=== PATIENT | female | born 1940 | race Caucasian/White ===

== ENCOUNTER 2016-03-16 14:31 | Outpatient (CLI) | payer MEDICARE, OTHER ==
[2016-03-16 19:19] LABS: HEMOGLOBIN A1C 0.64 g/dL
[2016-03-16 19:35] LABS: ALBUMIN/GLOBULIN RATIO 1.2 (1.0-2.2); BILIRUBIN,TOTAL 0.9 mg/dL (0.2-1.0); CALCIUM 9.3 mg/dL (8.5-10.3); CREATININE 0.9 mg/dL (0.4-1.0); POTASSIUM 4.1 mmol/L (3.5-5.0); TOTAL PROTEIN 6.9 g/dL (6.7-8.2)
[2016-03-16 19:37] LABS: BASOPHILS % (AUTO) 0.7 %; EOSINOPHILS # (AUTO) 0.1 10^3/uL (0.0-0.7); EOSINOPHILS % (AUTO) 1.9 %; HCT - HEMATOCRIT 39.3 % (37.0-47.0); HGB - HEMOGLOBIN 12.9 g/dL (12.0-16.0); LYMPHOCYTES % (AUTO) 33.1 %; MEAN CORPUSCULAR HEMOGLOBIN 27.9 pg (27.0-31.0); MEAN CORPUSCULAR HGB CONC 32.8 g/dL (32.0-36.0); MEAN CORPUSCULAR VOLUME 85.2 fL (81.0-99.0); MEAN PLATELET VOLUME 10.1 fL (7.9-10.8); MONOCYTES # (AUTO) 0.6 10^3/uL (0.0-1.0); MONOCYTES % (AUTO) 9.4 %; NEUTROPHILS # (AUTO) 3.4 10^3/uL (1.5-6.6); NEUTROPHILS % (AUTO) 54.9 %; NUCLEATED RED BLOOD CELLS AUTO 0.2 /100WBC; RED BLOOD COUNT 4.61 10^6/uL (4.20-5.40); RED CELL DISTRIBUTION WIDTH 19.5 % (12.0-15.0); UNCORRECTED WHITE BLOOD COUNT 6.2 x10^3/uL; WHITE BLOOD COUNT 6.2 x10^3/uL (4.8-10.8)
[2016-03-16 21:27] LABS: PLATELET ESTIMATE, MANUAL NORMAL (130-450,000) (NORMAL); PLATELET MORPHOLOGY RARE GIANT PLATELETS (NORMAL)
== END 2016-03-16 14:32 | disposition home or self-care (01) ==
LOC: LAB.WCP 14:31
PROVIDERS: ATTEND Family Medicine
DX: D50.9 Iron deficiency anemia, unspecified (principal); E11.9 Type 2 diabetes mellitus without complications; K52.9 Noninfective gastroenteritis and colitis, unspecified; J44.9 Chronic obstructive pulmonary disease, unspecified
CPT/HCPCS: 36415; 80053; 83036; 83540; 84466; 85025

== ENCOUNTER 2017-10-06 08:56 | Outpatient (CLI) | payer MEDICARE, OTHER | END 2017-10-06 08:57 | disposition short-term general hospital (02) | LOC: EMS 08:56 | PROVIDERS: ATTEND Surgery | DX: R10.13 Epigastric pain (principal); R05 Cough | CPT/HCPCS: A0425; A0427 ==

== ENCOUNTER 2018-02-08 08:00 | Outpatient (CLI) | payer MEDICARE, OTHER ==
[2018-02-08 18:58] LABS: BASOPHILS # (AUTO) 0.1 10^3/uL (0.0-0.1); BASOPHILS % (AUTO) 0.8 %; EOSINOPHILS # (AUTO) 0.2 10^3/uL (0.0-0.7); EOSINOPHILS % (AUTO) 3.5 %; HGB - HEMOGLOBIN 12.9 g/dL (12.0-16.0); LYMPHOCYTES # (AUTO) 1.8 10^3/uL (1.5-3.5); LYMPHOCYTES % (AUTO) 26.4 %; MEAN CORPUSCULAR HEMOGLOBIN 29.1 pg (27.0-31.0); MEAN CORPUSCULAR HGB CONC 31.8 g/dL (32.0-36.0); MEAN CORPUSCULAR VOLUME 91.3 fL (81.0-99.0); MEAN PLATELET VOLUME 9.8 fL (7.9-10.8); MONOCYTES # (AUTO) 0.5 10^3/uL (0.0-1.0); NEUTROPHILS # (AUTO) 4.3 10^3/uL (1.5-6.6); NEUTROPHILS % (AUTO) 62.3 %; PLT - PLATELET COUNT 203 10^3/uL (130-450); RED BLOOD COUNT 4.43 10^6/uL (4.20-5.40); WHITE BLOOD COUNT 6.8 x10^3/uL (4.8-10.8)
[2018-02-08 19:19] LABS: CREATININE 0.9 mg/dL (0.4-1.0)
== END 2018-02-08 23:59 | disposition home or self-care (01) ==
LOC: LAB.WCP 08:00
PROVIDERS: ATTEND Family Medicine
DX: D50.9 Iron deficiency anemia, unspecified (principal); I25.10 Atherosclerotic heart disease of native coronary artery without angina pectoris
CPT/HCPCS: 36415; 80048; 83540; 84466; 85025

== ENCOUNTER 2018-07-17 12:08 | Outpatient (CLI) | payer MEDICARE, OTHER | END 2018-07-17 12:09 | disposition short-term general hospital (02) | LOC: EMS 12:08 | PROVIDERS: ATTEND Surgery | DX: R07.9 Chest pain, unspecified (principal); R05 Cough | CPT/HCPCS: A0425; A0427 ==

== ENCOUNTER 2018-07-29 13:33 | Outpatient (CLI) | payer MEDICARE, OTHER ==
--- NOTE | 2018-07-29 16:14 | XRAY Report ---
Reason: PNEUMONIA,LEFT LOWER LOBE Procedure Date: 07/29/2018 Accession Number: [id number] / [id number] Procedure: WCP - Chest 2 View X-Ray CPT Code: 11211 FULL RESULT: EXAM: CHEST RADIOGRAPHY EXAM DATE: 07/29/2018 01:45 PM. CLINICAL HISTORY: Pneumonia, left lower lobe. COMPARISON: None. TECHNIQUE: 2 views. FINDINGS: Lungs/Pleura: Increased lung volumes. No vascular congestion. No pneumothorax. No pleural effusions. No parenchymal cavities are identified. Mediastinum: Heart size upper normal. Aorta is mild tortuous. Aortic atherosclerosis. Other: Degenerative changes of the thoracic spine and both shoulders. IMPRESSION: 1. Hyperinflation. 2. No acute disease. RADIA
== END 2018-07-29 13:34 | disposition home or self-care (01) ==
LOC: DI.WCP 13:33
PROVIDERS: ATTEND Family Medicine
DX: J18.9 Pneumonia, unspecified organism (principal)
CPT/HCPCS: 71046

== ENCOUNTER 2018-08-23 15:20 | Outpatient (CLI) | payer MEDICARE, OTHER ==
[2018-08-23 18:45] LABS: BASOPHILS # (AUTO) 0.1 10^3/uL (0.0-0.1); BASOPHILS % (AUTO) 0.9 %; EOSINOPHILS # (AUTO) 0.1 10^3/uL (0.0-0.7); EOSINOPHILS % (AUTO) 2.1 %; HGB - HEMOGLOBIN 12.9 g/dL (12.0-16.0); LYMPHOCYTES # (AUTO) 2.1 10^3/uL (1.5-3.5); LYMPHOCYTES % (AUTO) 36.9 %; MEAN CORPUSCULAR HEMOGLOBIN 30.6 pg (27.0-31.0); MEAN CORPUSCULAR HGB CONC 31.5 g/dL (32.0-36.0); MEAN CORPUSCULAR VOLUME 96.9 fL (81.0-99.0); MEAN PLATELET VOLUME 12.2 fL (7.9-10.8); MONOCYTES # (AUTO) 0.5 10^3/uL (0.0-1.0); MONOCYTES % (AUTO) 8.7 %; NEUTROPHILS # (AUTO) 2.9 10^3/uL (1.5-6.6); NEUTROPHILS % (AUTO) 51.1 %; PLT - PLATELET COUNT 184 10^3/uL (130-450); RED BLOOD COUNT 4.22 10^6/uL (4.20-5.40); RED CELL DISTRIBUTION WIDTH 13.2 % (12.0-15.0); WHITE BLOOD COUNT 5.8 x10^3/uL (4.8-10.8)
[2018-08-23 19:10] LABS: HB2 TOTAL 13.6 g/dL; HEMOGLOBIN A1C 0.69 g/dL; HEMOGLOBIN A1C % 6.8 % (4.6-6.2)
[2018-08-23 19:17] LABS: ALBUMIN 3.6 g/dL (3.2-5.5); ALBUMIN/GLOBULIN RATIO 1.1 (1.0-2.2); CREATININE 1.1 mg/dL (0.4-1.0); TOTAL PROTEIN 6.9 g/dL (6.7-8.2)
== END 2018-08-23 23:59 | disposition home or self-care (01) ==
LOC: LAB.WCP 15:20
PROVIDERS: ATTEND Family Medicine
DX: E11.9 Type 2 diabetes mellitus without complications (principal); I10 Essential (primary) hypertension
CPT/HCPCS: 36415; 80053; 83036; 85025

== ENCOUNTER 2018-09-26 14:32 | Outpatient (CLI) | payer MEDICARE, OTHER ==
--- NOTE | 2018-09-27 19:56 | XRAY Report ---
Reason: LEFT ASHOULDER PAIN Procedure Date: 09/26/2018 Accession Number: [id number] / [id number] Procedure: WCP - Shoulder 2 View LT CPT Code: FULL RESULT: EXAM: LEFT SHOULDER RADIOGRAPHY EXAM DATE: 09/26/2018 02:51 PM. CLINICAL HISTORY: Left shoulder pain. COMPARISON: None. TECHNIQUE: 2 views. FINDINGS: Bones: Normal. No fracture or bone lesion. Joints: Mild AC joint osteoarthritis. The glenohumeral joint is unremarkable. No joint subluxations. Soft tissues: Small calcification adjacent to the greater tuberosity. IMPRESSION: 1. Mild AC joint osteoarthritis. 2. Small calcification adjacent to the greater tuberosity which may represent focal calcific tendinosis of the rotator cuff. RADIA
== END 2018-09-26 23:59 | disposition home or self-care (01) ==
LOC: DI.WCP 14:32
PROVIDERS: ATTEND Family Medicine
DX: M19.012 Primary osteoarthritis, left shoulder (principal); M25.812 Other specified joint disorders, left shoulder

== ENCOUNTER 2020-03-26 08:00 | Outpatient (CLI) | payer MEDICARE, OTHER ==
[2020-03-26 18:05] LABS: BASOPHILS # (AUTO) 0.1 10^3/uL (0.0-0.1); BASOPHILS % (AUTO) 0.7 %; EOSINOPHILS # (AUTO) 0.1 10^3/uL (0.0-0.7); EOSINOPHILS % (AUTO) 2.1 %; HGB - HEMOGLOBIN 13.2 g/dL (12.0-16.0); LYMPHOCYTES # (AUTO) 2.2 10^3/uL (1.5-3.5); LYMPHOCYTES % (AUTO) 33.1 %; MEAN CORPUSCULAR HEMOGLOBIN 30.1 pg (27.0-31.0); MEAN CORPUSCULAR HGB CONC 31.3 g/dL (32.0-36.0); MEAN CORPUSCULAR VOLUME 96.1 fL (81.0-99.0); MONOCYTES # (AUTO) 0.7 10^3/uL (0.0-1.0); MONOCYTES % (AUTO) 10.4 %; NEUTROPHILS # (AUTO) 3.6 10^3/uL (1.5-6.6); NEUTROPHILS % (AUTO) 53.6 %; PLT - PLATELET COUNT 162 10^3/uL (130-450); RED BLOOD COUNT 4.39 10^6/uL (4.20-5.40); RED CELL DISTRIBUTION WIDTH 13.2 % (12.0-15.0); WHITE BLOOD COUNT 6.7 x10^3/uL (4.8-10.8)
[2020-03-26 18:32] LABS: % IRON SATURATION 11 % (20-50); ALBUMIN/GLOBULIN RATIO 1.3 (1.0-2.2); ALKALINE PHOSPHATASE 60 IU/L (42-121); ALT ALANINE AMINOTRANSFERASE 14 IU/L (10-60); AST ASPARTATE AMINOTRANSFERASE 17 IU/L (10-42); BILIRUBIN,TOTAL 1.2 mg/dL (0.2-1.0); BUN - BLOOD UREA NITROGEN 14 mg/dL (6-20); CALCIUM 9.3 mg/dL (8.5-10.3); CARBON DIOXIDE - CO2 31 mmol/L (21-32); CHLORIDE 100 mmol/L (101-111); CHOL/HDL RATIO 2.9 (<4.4); CHOLESTEROL 118 mg/dL; CREATININE 1.1 mg/dL (0.4-1.0); GLUCOSE 146 mg/dL (70-100); HDL CHOLESTEROL 41 mg/dL; IRON 46 ug/dL (28-170); LDL CHOLESTEROL,CALCULATED 46 mg/dL; LDL/HDL RATIO 1.1 (<4.4); TOTAL IRON BINDING CAPACITY 410 ug/dL (250-450); TOTAL PROTEIN 7.2 g/dL (6.7-8.2); TRANSFERRIN 293 mg/dL (192-382); VLDL CHOLESTEROL 31 mg/dL
[2020-03-26 18:38] LABS: FERRITIN 15.5 ng/mL (11.0-306.8)
== END 2020-03-26 23:59 | disposition home or self-care (01) ==
LOC: LAB.WCP 08:00
PROVIDERS: ATTEND Internal Medicine
DX: D50.9 Iron deficiency anemia, unspecified (principal); I25.10 Atherosclerotic heart disease of native coronary artery without angina pectoris; K92.2 Gastrointestinal hemorrhage, unspecified; I10 Essential (primary) hypertension; E78.5 Hyperlipidemia, unspecified; E11.9 Type 2 diabetes mellitus without complications
CPT/HCPCS: 36415; 80053; 80061; 82043; 82570; 82728; 83036; 83540; 83721; 84443; 84466; 85025

== ENCOUNTER 2020-03-29 01:20 | Outpatient (CLI) | payer MEDICARE, OTHER ==
[2020-03-29 18:54] LABS: CREATININE,URINE 84.8 mg/dL; MICROALBUM/CREATININE RATIO,UR 37.7 ug/mg (<30.0); MICROALBUMIN,URINE 3.2 mg/dL (0-300.0)
== END 2020-03-29 23:59 | disposition home or self-care (01) ==
LOC: LAB.R 01:20
PROVIDERS: ATTEND Internal Medicine
DX: E11.9 Type 2 diabetes mellitus without complications (principal)
CPT/HCPCS: 82043; 82570

== ENCOUNTER 2020-06-16 08:00 | Outpatient (CLI) | payer MEDICARE, OTHER ==
[2020-06-16 17:56] LABS: BASOPHILS # (AUTO) 0.1 10^3/uL (0.0-0.1); BASOPHILS % (AUTO) 0.7 %; EOSINOPHILS # (AUTO) 0.1 10^3/uL (0.0-0.7); EOSINOPHILS % (AUTO) 1.8 %; HCT - HEMATOCRIT 38.8 % (37.0-47.0); HGB - HEMOGLOBIN 12.8 g/dL (12.0-16.0); LYMPHOCYTES # (AUTO) 2.1 10^3/uL (1.5-3.5); LYMPHOCYTES % (AUTO) 29.4 %; MEAN CORPUSCULAR HEMOGLOBIN 30.8 pg (27.0-31.0); MEAN CORPUSCULAR VOLUME 93.3 fL (81.0-99.0); MEAN PLATELET VOLUME 12.6 fL (7.9-10.8); MONOCYTES # (AUTO) 0.6 10^3/uL (0.0-1.0); MONOCYTES % (AUTO) 8.2 %; NEUTROPHILS # (AUTO) 4.3 10^3/uL (1.5-6.6); NEUTROPHILS % (AUTO) 59.6 %; PLT - PLATELET COUNT 194 10^3/uL (130-450); RED BLOOD COUNT 4.16 10^6/uL (4.20-5.40); RED CELL DISTRIBUTION WIDTH 13.1 % (12.0-15.0); WHITE BLOOD COUNT 7.2 x10^3/uL (4.8-10.8)
[2020-06-16 18:40] LABS: ALBUMIN 4.1 g/dL (3.2-5.5); ALBUMIN/GLOBULIN RATIO 1.2 (1.0-2.2); ALKALINE PHOSPHATASE 86 IU/L (42-121); ALT ALANINE AMINOTRANSFERASE 15 IU/L (10-60); AST ASPARTATE AMINOTRANSFERASE 18 IU/L (10-42); BUN - BLOOD UREA NITROGEN 12 mg/dL (6-20); CALCIUM 9.2 mg/dL (8.5-10.3); CARBON DIOXIDE - CO2 28 mmol/L (21-32); CHLORIDE 102 mmol/L (101-111); CHOL/HDL RATIO 2.9 (<4.4); CHOLESTEROL 123 mg/dL; GFR - MDRD 54 (>89); GLUCOSE 195 mg/dL (70-100); HDL CHOLESTEROL 42 mg/dL; LDL CHOLESTEROL,CALCULATED 55 mg/dL; LDL/HDL RATIO 1.3 (<4.4); POTASSIUM 3.7 mmol/L (3.5-5.0); SODIUM 142 mmol/L (135-145); TOTAL PROTEIN 7.5 g/dL (6.7-8.2); TRIGLYCERIDES 128 mg/dL; VLDL CHOLESTEROL 26 mg/dL
[2020-06-16 20:26] LABS: ESTIMATED AVERAGE GLUCOSE 117 mg/dL (70-100); HEMOGLOBIN A1c% 5.7 % (4.27-6.07)
== END 2020-06-16 23:59 | disposition home or self-care (01) ==
LOC: LAB.WCP 08:00
PROVIDERS: ATTEND Family Medicine
DX: E11.22 Type 2 diabetes mellitus with diabetic chronic kidney disease (principal); N18.31 Chronic kidney disease, stage 3a; E78.5 Hyperlipidemia, unspecified; E11.42 Type 2 diabetes mellitus with diabetic polyneuropathy
CPT/HCPCS: 36415; 80053; 80061; 82043; 82570; 83036; 83721; 85025

== ENCOUNTER 2021-03-16 12:38 | Outpatient (CLI) | payer MEDICARE ==
[2021-03-16 18:00] LABS: BASOPHILS % (AUTO) 0.4 %; EOSINOPHILS % (AUTO) 0.4 %; HCT - HEMATOCRIT 37.2 % (37.0-47.0); HGB - HEMOGLOBIN 11.7 g/dL (12.0-16.0); LYMPHOCYTES # (AUTO) 1.5 10^3/uL (1.5-3.5); LYMPHOCYTES % (AUTO) 28.3 %; MEAN CORPUSCULAR HEMOGLOBIN 30.2 pg (27.0-31.0); MEAN CORPUSCULAR HGB CONC 31.5 g/dL (32.0-36.0); MEAN CORPUSCULAR VOLUME 95.9 fL (81.0-99.0); MEAN PLATELET VOLUME 12.8 fL (7.9-10.8); NEUTROPHILS # (AUTO) 2.9 10^3/uL (1.5-6.6); NEUTROPHILS % (AUTO) 52.7 %; PLT - PLATELET COUNT 156 10^3/uL (130-450); RED BLOOD COUNT 3.88 10^6/uL (4.20-5.40); RED CELL DISTRIBUTION WIDTH 13.4 % (12.0-15.0); WHITE BLOOD COUNT 5.4 x10^3/uL (4.8-10.8)
[2021-03-16 18:22] LABS: ALBUMIN 3.7 g/dL (3.2-5.5); ALBUMIN/GLOBULIN RATIO 1.1 (1.0-2.2); BILIRUBIN,TOTAL 0.7 mg/dL (0.2-1.0); CREATININE 0.8 mg/dL (0.4-1.0); POTASSIUM 3.8 mmol/L (3.5-5.0); TOTAL PROTEIN 7.2 g/dL (6.7-8.2)
[2021-03-16 18:45] LABS: THYROID STIMULATING HORMONE 2.63 uIU/mL (0.34-5.60)
== END 2021-03-16 12:39 | disposition home or self-care (01) ==
LOC: LAB.N 12:38
PROVIDERS: ATTEND Physician Assistant
DX: R53.83 Other fatigue (principal); R53.1 Weakness
CPT/HCPCS: 36415; 80053; 83540; 83880; 84443; 84466; 85025

== ENCOUNTER 2021-03-22 07:15 | Outpatient (CLI) | payer MEDICARE | END 2021-03-22 07:16 | disposition critical access hospital (66) | LOC: EMS 07:15 | DX: U07.1 COVID-19 (principal) | CPT/HCPCS: A0425; A0427 ==

== ENCOUNTER 2021-03-22 07:45 | Inpatient (IN) | payer MEDICARE ==
[2021-03-22] MEDS ORDERED: DEXAMETHASONE 10 MG/ML VIAL PO STA (08:07)
[2021-03-22] MEDS ORDERED: CHERRY SYRUP 10 ML UDC PO ONE (08:07)
--- NOTE | 2021-03-22 08:07 | ED Physician Documentation ---
History of Present Illness - Stated complaint Stated Complaint: C+/WEAKNESS - History obtained from History obtained from: Patient, EMS - History of Present Illness Timing: Today Pain level max: 0 Pain level now: 0 - Additonal information Additional information: Patient is a 80-year-old female who is brought in by EMS today for coughing. Patient is a relatively poor historian. Reportedly she was at [facility] from March 16 to March 21. She was discharged home yesterday. Her original admission was for stroke versus TIA. She was reportedly Covid positive there. She is unvaccinated for Covid. Has a history of emphysema. She is on 2 L of nasal cannula oxygen at home. Had increased coughing this morning and EMS was called. She was given a breathing treatment with EMS and is currently feeling better. She denies any fevers or chills. No chest pain. No nausea or vomiting. Worse with walking, better with rest. While the patient was at [facility], she reportedly refused treatment with remdesivir. Review of Systems Ten Systems: 10 systems reviewed and negative Constitutional: denies: Fever, Chills Ears: denies: Ear pain Nose: denies: Rhinorrhea / runny nose, Congestion Throat: denies: Sore throat Respiratory: reports: Dyspnea, Cough, Wheezing GI: denies: Abdominal Pain, Nausea, Vomiting, Diarrhea Skin: denies: Rash Musculoskeletal: denies: Neck pain, Back pain Neurologic: denies: Headache PD PAST MEDICAL HISTORY - Past Medical History Past Medical History: Yes Respiratory: COPD, Emphysema - Present Medications Home Medications: Ambulatory Orders Medication Instructions Recorded Confirmed Home Medications Unobtainable 03/22/21 03/22/21 [HOME MEDICATIONS UNOBTAINABLE] - Allergies Allergies/Adverse Reactions: Allergies Allergy/AdvReac Type Severity Reaction Status Date / Time No Known Drug Allergies Allergy Verified 03/22/21 08:16 - Living Situation Living Situation: reports: With family Living Arrangement: reports: At home - Social History Does the pt have substance abuse?: No - Family History Family history: reports: Non contributory PD ED PE NORMAL - Vitals Vital signs reviewed: Yes - General General: Alert and oriented X 3, No acute distress, Well developed/nourished - HEENT HEENT: PERRL, Moist mucous membranes, Pharynx benign - Neck Neck: Supple, no meningeal sign - Cardiac Cardiac: RRR - Respiratory Respiratory: No respiratory distress, Other (Mild wheezing and crackles bilaterally) - Abdomen Abdomen: Soft, Non tender, Non distended, Other (dark stool in rectal vault) - Derm Derm: Warm and dry - Extremities Extremities: No calf tenderness / cord - Neuro Neuro: Alert and oriented X 3 Results - Vitals Vitals: Vital Signs - 24 hr 03/22/21 03/22/21 03/22/21 08:07 10:15 12:00 Temperature 37.1 C 34.8 C L Heart Rate 102 H 87 83 Heart Rate [ Supine] Respiratory 28 H 20 22 Rate Blood Pressure 118/62 136/74 H 146/65 H Blood Pressure [Supine] O2 Saturation 89 L 97 96 03/22/21 03/22/21 03/22/21 12:12 13:00 15:00 Temperature Heart Rate 89 87 Heart Rate [ 93 Supine] Respiratory 24 20 Rate Blood Pressure 125/65 133/57 H Blood Pressure 146/65 H [Supine] O2 Saturation 96 97 03/22/21 03/22/21 15:05 16:15 Temperature Heart Rate 89 89 Heart Rate [ Supine] Respiratory 24 22 Rate Blood Pressure 137/73 H Blood Pressure [Supine] O2 Saturation 98 Oxygen O2 Source Nasal cannula Oxygen Flow Rate 3 - Labs Labs: Microbiology 03/22/21 17:05 Occult Blood - Final Stool Laboratory Tests 03/22/21 03/22/21 03/22/21 08:20 08:20 15:35 WBC 4.5 L RBC 2.60 L Hgb 7.8 L Hct 24.4 L MCV 93.8 MCH 30.0 MCHC 32.0 RDW 13.2 Plt Count 141 MPV 11.9 H Neut # (Auto) 3.2 Lymph # (Auto) 0.7 L [place] # (Auto) 0.6 Eos # (Auto) 0.0 Baso # (Auto) 0.0 Absolute Nucleated RBC 0.00 Nucleated RBC % 0.0 Sodium 139 Potassium 3.4 L Chloride 98 L Carbon Dioxide 31 Anion Gap 10.0 BUN 22 H Creatinine 0.7 Estimated GFR (MDRD) 81 L Glucose 121 H Calcium 8.4 L Nasal Adenovirus (PCR) NOT DETECTED Nasal B. parapertussis DNA (PCR) NOT DETECTED Nasal Coronavir 229E PCR NOT DETECTED Nasal Coronavir HKU1 PCR NOT DETECTED Nasal Coronavir NL63 PCR NOT DETECTED Nasal Coronavir OC43 PCR NOT DETECTED Nasal Enterovir/Rhinovir PCR NOT DETECTED Nasal Influenza B PCR NOT DETECTED Nasal Influenza A PCR NOT DETECTED Nasal Parainfluen 1 PCR NOT DETECTED Nasal Parainfluen 2 PCR NOT DETECTED Nasal Parainfluen 3 PCR NOT DETECTED Nasal Parainfluen 4 PCR NOT DETECTED Nasal RSV (PCR) NOT DETECTED Nasal B.pertussis DNA PCR NOT DETECTED Nasal C.pneumoniae (PCR) NOT DETECTED Jovanny Human Metapneumo PCR NOT DETECTED Nasal M.pneumoniae (PCR) NOT DETECTED Nasal SARS-CoV-2 (PCR) DETECTED A 03/22/21 16:46 WBC 4.3 L RBC 2.73 L Hgb 8.2 L Hct 25.7 L MCV 94.1 MCH 30.0 MCHC 31.9 L RDW 13.3 Plt Count 151 MPV 12.0 H Neut # (Auto) Lymph # (Auto) [place] # (Auto) Eos # (Auto) Baso # (Auto) Absolute Nucleated RBC Nucleated RBC % Sodium Potassium Chloride Carbon Dioxide Anion Gap BUN Creatinine Estimated GFR (MDRD) Glucose Calcium Nasal Adenovirus (PCR) Nasal B. parapertussis DNA (PCR) Nasal Coronavir 229E PCR Nasal Coronavir HKU1 PCR Nasal Coronavir NL63 PCR Nasal Coronavir OC43 PCR Nasal Enterovir/Rhinovir PCR Nasal Influenza B PCR Nasal Influenza A PCR Nasal Parainfluen 1 PCR Nasal Parainfluen 2 PCR Nasal Parainfluen 3 PCR Nasal Parainfluen 4 PCR Nasal RSV (PCR) Nasal B.pertussis DNA PCR Nasal C.pneumoniae (PCR) Jovanny Human Metapneumo PCR Nasal M.pneumoniae (PCR) Nasal SARS-CoV-2 (PCR) - Rads (name of study) cxr Radiology: Final report received, EMP read contemporaneously, See rad report (Mild atypical pneumonia. ) PD MEDICAL DECISION MAKING - ED course Complexity details: reviewed results, re-evaluated patient, considered differential, d/w patient, d/w strategy execution consultant ED course: Patient is well-appearing, nontoxic. Afebrile. Stable on her regular home O2. Has Covid. Patient does have anemia. Patient's hemoglobin was 11.7 on 03/16/2021. Her hemoglobin is down to 7.8 today. Her stool is positive for blood. The family states that the patient's last endoscopy and colonoscopy were about 4 years ago and reportedly normal. She has had anemia in the past that required transfusion with several units of blood. The daughter states that she asked to [facility] yesterday prior to discharge if the patient was anemic and was told no. We have been attempting to obtain records from [facility] all day today with no receipt of records. Unclear what her hemoglobin was while she was in the hospital. Discussed the case with Dr. Hines, general surgery on-call who will plan for endoscopy tomorrow. The hospitalist, Dr. Bran was also consulted and we will place the patient in observation for further care. Physical therapy evaluated the patient and they do feel that she needs a skilled nursing. This document was made in part using voice recognition software. While efforts are made to proofread this document, sound alike and grammatical errors may occur. Departure - Departure Disposition: ED Place in Observation Clinical Impression: COVID-19, Oxygen dependent, Generalized weakness COPD (chronic obstructive pulmonary disease) Qualifiers: COPD type: unspecified COPD Qualified Code(s): J44.9 - Chronic obstructive pulmonary disease, unspecified Anemia Qualifiers: Anemia type: unspecified type Qualified Code(s): D64.9 - Anemia, unspecified Condition: Stable
[2021-03-22 08:23] LABS: BASOPHILS % (AUTO) 0.2 %; HCT - HEMATOCRIT 24.4 % (37.0-47.0); HGB - HEMOGLOBIN 7.8 g/dL (12.0-16.0); LYMPHOCYTES # (AUTO) 0.7 10^3/uL (1.5-3.5); LYMPHOCYTES % (AUTO) 16.2 %; MEAN CORPUSCULAR VOLUME 93.8 fL (81.0-99.0); MEAN PLATELET VOLUME 11.9 fL (7.9-10.8); MONOCYTES # (AUTO) 0.6 10^3/uL (0.0-1.0); MONOCYTES % (AUTO) 12.4 %; NEUTROPHILS # (AUTO) 3.2 10^3/uL (1.5-6.6); PLT - PLATELET COUNT 141 10^3/uL (130-450); RED CELL DISTRIBUTION WIDTH 13.2 % (12.0-15.0); WHITE BLOOD COUNT 4.5 x10^3/uL (4.8-10.8)
--- NOTE | 2021-03-22 08:26 | XRAY Report ---
PROCEDURE: Chest 1 View X-Ray INDICATIONS: covid+, cough TECHNIQUE: One view of the chest was acquired. COMPARISON: None FINDINGS: Surgical changes and devices: None. Lungs and pleura: Mild diffuse reticulonodular pulmonary opacity. Lungs are clear. Mediastinum: Mediastinal contours appear normal. Heart size is normal. Bones and chest wall: No suspicious bony lesions. Overlying soft tissues appear unremarkable. IMPRESSION: Mild atypical pneumonia. Reviewed by: Sarah Oliveira MD on 03/22/2021 8:24 AM [facility] Approved by: Sarah Oliveira MD on 03/22/2021 8:24 AM [facility] Station ID: [id number]
[2021-03-22 08:32] LABS: CALCIUM 8.4 mg/dL (8.5-10.3); CREATININE 0.7 mg/dL (0.4-1.0); POTASSIUM 3.4 mmol/L (3.5-5.0)
[2021-03-22] MEDS ORDERED: ALBUTEROL 1 PUFF INH STA (14:49)
[2021-03-22 16:38] LABS: CORONAVIRUS 229E-RESP PCR NOT DETECTED; CORONAVIRUS HKU1-RESP PCR NOT DETECTED; CORONAVIRUS NL63-RESP PCR NOT DETECTED; CORONAVIRUS OC43-RESP PCR NOT DETECTED; HUMAN METAPNEUMOVIRUS NOT DETECTED; INFLUENZA A- RESP PCR PANEL NOT DETECTED; INFLUENZA B - RESP PCR PANEL NOT DETECTED; PARAINFLUENZA VIRUS 1 NOT DETECTED; PARAINFLUENZA VIRUS 2 NOT DETECTED; RHINOVIRUS/ENTEROVIRUS NOT DETECTED
[2021-03-22 16:39] LABS: B. PARAPERTUSSIS- RESP PCR PAN NOT DETECTED; B. PERTUSSIS- RESP PCR PANEL NOT DETECTED; C. PNEUMONIAE- RESP PCR PANEL NOT DETECTED; M. PNEUMONIAE- RESP PCR PANEL NOT DETECTED; PARAINFLUENZA VIRUS 3 NOT DETECTED; PARAINFLUENZA VIRUS 4 NOT DETECTED; RSV- RESP PCR PANEL NOT DETECTED
[2021-03-22 16:43] LABS: SARS-CoV-2 -RESP PCR PANEL DETECTED
[2021-03-22 16:49] LABS: HCT - HEMATOCRIT 25.7 % (37.0-47.0); HGB - HEMOGLOBIN 8.2 g/dL (12.0-16.0); MEAN CORPUSCULAR HGB CONC 31.9 g/dL (32.0-36.0); MEAN CORPUSCULAR VOLUME 94.1 fL (81.0-99.0); RED BLOOD COUNT 2.73 10^6/uL (4.20-5.40); RED CELL DISTRIBUTION WIDTH 13.3 % (12.0-15.0); WHITE BLOOD COUNT 4.3 x10^3/uL (4.8-10.8)
[2021-03-22] MEDS ORDERED: ONDANSETRON ODT 4 MG TABLET TL PRN (18:14)
[2021-03-22] MEDS ORDERED: ONDANSETRON 4 MG/2 ML VIAL IVP PRN (18:14)
--- NOTE | 2021-03-22 20:23 | HISTORY & PHYSICAL EXAMINATION ---
Chief Complaint - Chief Complaint Chief Complaint: weakness History of Present Illness - Admitted From Admitted From:: home - History Obtained From Records Reviewed: [facility] and [facility] History obtained from: Dr. edwards and daughter Exam Limitations: patient is confused - History of Present Illness HPI Comment/Other: She was just discharged from [facility] yesterday. Patient is a morbidly obese female who has coronary artery disease (3 stents in 2017), COPD (on 2 to 3 L of home oxygen), type II [id number] diabetes, history of NSTEMI, hypertension, bipolar disorder that presented to the emergency room at [facility] on March 16 with "sudden" weakness for 2 days. been getting increasingly weak for 48 hours. She uses a walker at home but for the 2 days prior to admission was not able to do so. Speech was slightly slurred per her son and the patient complained of left arm numbness. She was having increasing cough, increasing dyspnea on exertion over her chronic dyspnea on exertion. Cough was productive of yellow phlegm. She was ostensibly treated as a possible TIA. A CT of the head was negative. She does have cerebral volume loss and small vessel changes. Lactic acid was 1. Blood cultures x2 were done. Glucose was 183. She was positive for COVID-19. She is not vaccinated because she does not believe in the vaccine. But she did not have any manifestation of Covid pneumonia on chest x-ray. CT and MRI did not show any stroke. Echocardiogram with bubble was unremarkable. Ejection fraction was 55 to 60%. No valvular heart disease. Internal carotid stenosis was 50 to 69% with scattered plaque. Nothing significant. She requested discharge to home. In reading the Discharge Summary from that facility, physical therapy and Occupational Therapy did recommend that she go to a detention facility. They said that it would be few days before she can be placed to in [place] facility due to Covid (+) status. Daughter feels that there is not a clear communication. Several times she asked if mom was able to transfer. Physical therapy and Social Work assured her that mom was able to stand to transfer. With that in mind, daughter felt that she could go home as opposed to go to a fci. They were barely able to get her into her car. When she got home they were barely able to get her into the house. When she was home she has been in bed and has not done much else. She has a poor appetite. They managed to get one protein shake down her between yesterday and today. But she cannot get out of bed. She cannot sit this transfer. They feel that she is not able to stay at home safely. Daughter is very concerned that mom is anemic. She recalls an episode in 2018 where mom presented with these exact same symptoms [facility]. Hemoglobin then was 6.9. When she was transfused all of her symptoms "went away" and she was able to go home. She refused endoscopy at that time. She repeatedly asked [facility] if mom was anemic. She was assured that mom was not. So when we have explained to her today that mom is anemic she is very annoyed. Other problems that she had while there was COPD. Low suspicion for pneumonia even with Covid positive status. She was treated with duo nebs, oxygen, and O2 sats were maintained between 88 to 92%. 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 To be followed up in the outpatient basis. She had acute kidney injury with a BUN of 18 and a creatinine of 1.03. Baseline usually 0.75. She was felt to be dehydrated and she responded to normal saline 75 mils an hour. Her chronic problems of hypertension, bipolar disorder, coronary artery disease and diabetic neuropathy were all treated with her usual home meds. Since discharge to home she has not done well. They cannot take care of her with this weakness. Maybe she has more cough and phlegm but not a severe change. So they called EMS and EMS had her with an O2 sat of 89% on room air. 3 L nasal cannula resulted in 96%. No gross motor deficit noted. Temperature was 37.1. Heart rate 102. Blood pressure 118/62. Respirations 28. She was a morbidly obese female with no gross focal neurological deficits. She was alert, "oriented" on exam even though she is described as confused, disoriented by family. Again there is no focal motor deficits. Hemoglobin was 7.8. The emergency room provider was unclear if this was a new problem or an old problem. He waited 5 hours to get records from [facility]. Rectal was heme positive. because he could not verify if this was a new drop in hemoglobin or chronic hemoglobin, he postulated that she may be weak because of anemia. He repeated her hemoglobin and it was 8.2. He spoke to general surgery who said they would be willing to do an EGD on this stay if she was having acute GI bleed. Chest x- ray has mild diffuse reticular nodular pulmonary opacity. Potassium was 3.4. BUN 22. Creatinine 0.7. White cell count is low at 4.3. She continues to be Covid positive. The patient was placed in observation. We then obtained records from [facility]. Her hemoglobin there was 8.6 and 8.9 for the entirety of her stay. As such her hemoglobin is stable and she most likely will not need an EGD acutely. So what we have is a generalized weakness patient. No new acute findings other than mild Covid pneumonia on chronic medical conditions. She will be placed in observation overnight. Hemoglobin will be rechecked for tomorrow. History - Past Medical History Cardiovascular: reports: Hypertension, High cholesterol, Coronary artery disease Respiratory: reports: COPD, Emphysema Neuro: reports: Dementia, TIA (see CT head, MRI, carotids, ECHO in HPI), Other (diminished mobility, uses walker, obese) Endocrine/Autoimmune: reports: Type 2 diabetes GI: reports: GERD MANAGER SUBWAY: reports: Other () : reports: Incontinence HEENT: reports: Chronic vision loss Psych: reports: Bipolar disorder Musculoskeletal: reports: Osteoarthritis Derm: reports: None MRSA Hx?: No - Past Surgical History General: reports: Cholecystectomy Ortho: reports: Other (back surgery) Cardiovascular: reports: Coronary stent - Family & Social History Family History Comment/Other: Mom of old age in her 90s. Dad of bl adder cancer? age 80s. 1 brother of suicide, alcoholic. 1/2 brother of suicide, alcoholic. 1/2 brother alive. 2 half sisters alive, DM. 4 kids. oldest son of massive heart attack in 50s, drug abuse and alcoholic Living arrangement: At home Living Situation: With family Social History Notes: Patient and have lived w daughter for 5 years. Smoked. 45 pk yr hs w stopping cigs 20 years ago. No problems w alcohol. - Substance History Use: Uses substance without health or social issues: NONE Abuse: Recurrent use of substance despite neg consequences: NONE Dependence: Experiences withdrawal or developed tolerances: NONE - POLST Patient has POLST: No POLST Status: DNR (but does want intubation) Meds/Allgy - Home Medications Home Medications: Ambulatory Orders Medication Instructions Recorded Confirmed Aspirin EC [Ecotrin] 81 mg PO DAILY 03/22/21 03/22/21 Atorvastatin Calcium 40 mg PO QPM 03/22/21 03/22/21 Famotidine [Pepcid] 20 mg PO BID 03/22/21 03/22/21 Furosemide [Lasix] 20 mg PO SUTUTHSA@0900 03/22/21 03/22/21 Furosemide [Lasix] 40 mg PO MOWEFR@0900 03/22/21 03/22/21 Gabapentin [Neurontin] 300 mg PO HS 03/22/21 03/22/21 Glimepiride [Amaryl] 4 mg PO QDBREAKFAST 03/22/21 03/22/21 Metoprolol Succinate [Toprol Xl] 12.5 mg PO BID 03/22/21 03/22/21 Nitroglycerin [Nitrostat] 0.4 mg SL Q5MIN PRN 03/22/21 03/22/21 Risperidone [Risperdal] 1 mg PO QPM 03/22/21 03/22/21 - Allergies Allergies/Adverse Reactions: Allergies Allergy/AdvReac Type Severity Reaction Status Date / Time No Known Drug Allergies Allergy Verified 03/22/21 08:16 Review of Systems - Constitutional Constitutional: reports: Fatigue, Malaise, Weakness, Poor appetite - Eyes Eyes: reports: Vision loss (chronic). denies: Pain - Ears, Nose & Throat Ears, Nose & Throat: reports: Hearing loss, Nasal discharge, Nasal congestion. denies: Hearing aids, Tinnitus, Vertigo - Cardiovascular Cariovascular: reports: Exertional dyspnea, Decr. exercise tolerance. denies: Irregular heart rate, Palpitations, Chest pain, Edema, Lightheadedness - Respiratory Respiratory: reports: Cough, Sputum production, SOB with exertion. denies: Wheezing, Snoring, SOB at rest - Gastrointestinal Gastrointestinal: denies: Abdominal pain, Abdominal distention, Constipation, Bl ack stools, Bloody stools, Bile emesis, Jian blood emesis - Genitourinary Genitourinary: reports: Incontinence. denies: Dysuria, Frequency, Urgency, Hematuria - Musculoskeletal Musculoskeletal: reports: Stiffness, Joint pain. denies: Muscle pain, Back pain - Integumentary Integumentary: denies: Rash, Pruritis, Lesions, Dryness - Neurological Neurological: reports: General weakness, Memory problems, Pre-existing deficit. denies: Focal weakness, Headache, Dizziness, Abnormal gait - Psychiatric Psychiatric: reports: Depression, Anxiety, Other (confusion, word finding difficulty). denies: Suicidal - Endocrine Endocrine: denies: Polyuria, Polydypsia, Polyphagia, Intolerance to cold - Hematologic/Lymphatic Hematologic/Lymphatic: reports: Anemia. denies: Bruising, Petechiae, Blood clots Prior Level of Functionality: She is a relatively sedentary person who is able to go from a laying to sitting position. Sitting to standing position and uses a walker. Exam - Vital Signs Reviewed Vital Signs: Yes Vital Signs: Vital Signs x48h Temp Pulse Pulse Resp BP BP Pulse Ox 03/22/21 19:59 36.7 C 91 24 132/46 H 100 03/22/21 19:10 84 20 03/22/21 18:32 84 18 136/80 H 97 03/22/21 16:15 89 22 137/73 H 98 03/22/21 15:05 89 24 03/22/21 15:00 87 20 133/57 H 97 03/22/21 13:00 89 24 125/65 96 - Physical Exam General Appearance: positive: Alert, Other (Morbidly obese, sleepy, difficult to keep awake to answer questions) Eyes Bilateral: positive: PERRL, EOMI ENT: positive: Dry mucous membranes (Mouth breathing when she falls asleep, I think that is why she is dry. No teeth.) Neck: positive: No JVD. negative: Stiff neck Respiratory: positive: No respiratory distress, Wheezes (diffused but no use of acessory muscles and falls asleep without issue), Other (laying almost flat). negative: Rales, Rhonchi Cardiovascular: positive: Regular rate & rhythm, No murmur. negative: Gallop/S4, Friction rub Peripheral Pulses: positive: 1+ Abdomen: positive: Non-tender, No organomegaly, Nml bowel sounds, No distention Skin: positive: Warm, Dry, Pallor Extremities: positive: Full ROM, No pedal edema Neurologic/Psychiatric: positive: CN's nml (2-12), Disoriented to place, Disoriented to time. negative: Motor nml (moderate generalized weakness) Conclusion/Plan - Problem List (1) Generalized weakness Conclusion/Plan: And putting together her story, physical exam, and objective findings, I believe that her generalized weakness is sudden as the daughter describes. Most likely this patient is succumbed to a mild case of Covid. However in a patient who has this many comorbid conditions of obesity, sedentary status, COPD, this would leave her weak enough not to be able to take care of herself. She is not having a stroke. While she is infected, the infectivity appears to be mild by hypoxia and chest x-ray. She has all the lab findings of leukopenia and mild atypical pneumonia. She is not having a heart attack. While electrolyte abnormalities are present they are not severe. And she appears to have a chronic anemia not in acute anemia which was the daughter's concern. Plan: Observation status Treatment for all the above problems listed PT and OT consult and treatment. She had HH ordered but they were not going to be able to get to the house until after 03/26 per the daughter. Plan for discharge to detention facility in [place]. Daughter states a bed is already been identified and is available we just need to write transfer orders when the patient's quarantine status is concluded. (2) COVID-19 Conclusion/Plan: With mild infection. Mild atypical pneumonia. She refused remdesivir at [facility]. Her RN asked her daughter and family is requesting no remdesivir. (3) Chronic respiratory failure with hypoxia Conclusion/Plan: Due to COPD. Patient is on 2 to 3 L at home. Currently on stable oxygen requirement status here. (4) COPD without exacerbation Conclusion/Plan: While she is on oxygen at home, this patient is not on nebulizers. Current exam has a cough, phlegm production and wheezing but no use of acessory muscles. Will add 3 times daily DuoNeb and decadron and see if that helps. (5) Type 2 diabetes mellitus treated without insulin Conclusion/Plan: At home she is on Amaryl.A1c 2 years ago was 7.4%. At [facility] it was 6%. While there she was on low-dose regular insulin with correctional scale. While she is here we will do the same. (6) Iron deficiency anemia Conclusion/Plan: Mom is on chronic iron. She has been on daily iron therapy ever since she had her previous transfusion in 2018. Because mom had refused endoscopy there is no way to know the etiology of her anemia. With this day, daughter is asking if we could please do an endoscopy. I explained to her that now that she has been identified as having chronic anemia versus acute anemia, it will be up to the surgeon to decide if she will be done while she is here or planned in the outpatient setting. Qualifiers: Iron deficiency anemia type: unspecified iron deficiency Qualified Code(s): D50.9 - Iron deficiency anemia, unspecified (7) Bipolar 1 disorder Conclusion/Plan: resume respirdal. (8) Hypokalemia Conclusion/Plan: K rider and recheck in am. - Lab Results Lab results reviewed: Yes Fish Bones: 03/22/21 16:46 03/22/21 08:20 - Diagnostic Imaging Results Diagnostic Imaging Results: positive: Final report reviewed - EKG Results EKG Interpreted Independently: No Core Measures - Anticipated LOS I expect patient to be DC'd or transferred within 96 hours.: Yes - DVT/VTE - Prophylaxis VTE/DVT Device ordered at admit?: Yes
[2021-03-22 22:12] LABS: HCT - HEMATOCRIT 23.9 % (37.0-47.0); HGB - HEMOGLOBIN 7.6 g/dL (12.0-16.0)
[2021-03-22 22:33] LABS: INR 1.1 (0.8-1.2)
[2021-03-22] MEDS: SODIUM CHLORIDE FLUSH 0.9% 10 ML SYRINGE IVP PRN (22:36)
[2021-03-22] MEDS: POTASSIUM CHLOR 10 MEQ/100 ML 10 MEQ/100 ML BAG IV SCH (22:36)
[2021-03-23] MEDS: POTASSIUM CHLOR 10 MEQ/100 ML 10 MEQ/100 ML BAG IV SCH ×3 (00:14→03:05)
[2021-03-23] MEDS: SODIUM CHLORIDE FLUSH 0.9% 10 ML SYRINGE IVP SCH ×3 (01:48→17:19)
[2021-03-23 05:58] LABS: HCT - HEMATOCRIT 23.3 % (37.0-47.0); HGB - HEMOGLOBIN 7.5 g/dL (12.0-16.0); LYMPHOCYTES # (AUTO) 0.6 10^3/uL (1.5-3.5); LYMPHOCYTES % (AUTO) 13.8 %; MEAN CORPUSCULAR HGB CONC 32.2 g/dL (32.0-36.0); MEAN CORPUSCULAR VOLUME 93.2 fL (81.0-99.0); MEAN PLATELET VOLUME 12.2 fL (7.9-10.8); MONOCYTES # (AUTO) 0.6 10^3/uL (0.0-1.0); MONOCYTES % (AUTO) 13.4 %; NEUTROPHILS # (AUTO) 3.3 10^3/uL (1.5-6.6); NEUTROPHILS % (AUTO) 72.4 %; PLT - PLATELET COUNT 162 10^3/uL (130-450); RED CELL DISTRIBUTION WIDTH 13.2 % (12.0-15.0); WHITE BLOOD COUNT 4.5 x10^3/uL (4.8-10.8)
[2021-03-23 06:04] LABS: CALCIUM 8.5 mg/dL (8.5-10.3); CREATININE 0.6 mg/dL (0.4-1.0); POTASSIUM 4.2 mmol/L (3.5-5.0)
[2021-03-23] MEDS: INSULIN ASPART 300 UNIT/3 ML PEN SUBQ SCH ×4 (07:59→22:06)
[2021-03-23] MEDS: METOPROLOL SUCCINATE 25 MG TABLET PO SCH ×2 (08:00→22:07)
--- NOTE | 2021-03-23 08:34 | PROVIDER PROGRESS NOTE ---
Subjective - Prog Note Date Prog Note Date: 03/23/21 - Subjective Subjective: She feels better overall. Denies any shortness of breath. Still has an occasional productive cough. Has not noticed any bleeding. Current Medications - Current Medications Current Medications: Active Medications Acetaminophen (Acetaminophen 325 Mg Tablet) 650 mg PO Q4HR PRN PRN Reason: Pain 1 to 4 Albuterol (Albuterol 1 Puff) 2 puffs INH Q4H PRN PRN Reason: Wheezing Atorvastatin Calcium (Atorvastatin 40 Mg Tablet) 40 mg PO QPM [facility] Cholecalciferol (Cholecalciferol 25 Mcg Tablet) 50 mcg PO DAILY [facility] Last Admin: 03/23/21 12:52 Dose: 50 mcg Dexamethasone (Dexamethasone 4 Mg/Ml Vial) 6 mg IVP DAILY [facility] Stop: 03/31/21 09:01 Last Admin: 03/23/21 08:00 Dose: 6 mg Gabapentin (Gabapentin 300 Mg Capsule) 300 mg PO HS [facility] Insulin Aspart (Insulin Aspart 300 Unit/3 Ml Pen) 1 - 9 unit SUBQ 08 00,1200,1700,2100 [facility]; Protocol Last Admin: 03/23/21 12:03 Dose: Not Given Metoprolol Succinate (Metoprolol Succinate 25 Mg Tablet) 12.5 mg PO BID [facility] Last Admin: 03/23/21 08:00 Dose: 12.5 mg Ondansetron HCl (Ondansetron Odt 4 Mg Tablet) 4 mg TL Q6HR PRN PRN Reason: Nausea / Vomiting Ondansetron HCl (Ondansetron 4 Mg/2 Ml Vial) 4 mg IVP Q6HR PRN PRN Reason: Nausea / Vomiting Pantoprazole Sodium (Pantoprazole 40 Mg Tablet) 40 mg PO QDAC [facility] Last Admin: 03/23/21 09:49 Dose: 40 mg Risperidone (Risperidone 1 Mg Tablet) 1 mg PO QPM [facility] Sodium Chloride (Sodium Chloride Flush 0.9% 10 Ml Syringe) 10 ml IVP PRN PRN PRN Reason: NEEDED PER PROVIDER ORDERS Last Admin: 03/22/21 22:36 Dose: 10 ml Sodium Chloride (Sodium Chloride Flush 0.9% 10 Ml Syringe) 10 ml IVP 0100,0900, 1700 [facility] Last Admin: 03/23/21 08:00 Dose: 10 ml Aspirin EC [Ecotrin] 81 mg PO DAILY 03/22/21 Atorvastatin Calcium 40 mg PO QPM 03/22/21 Famotidine [Pepcid] 20 mg PO BID 03/22/21 Furosemide [Lasix] 20 mg PO SUTUTHSA@0900 03/22/21 Furosemide [Lasix] 40 mg PO MOWEFR@0900 03/22/21 Gabapentin [Neurontin] 300 mg PO HS 03/22/21 Glimepiride [Amaryl] 4 mg PO QDBREAKFAST 03/22/21 Metoprolol Succinate [Toprol Xl] 12.5 mg PO BID 03/22/21 Nitroglycerin [Nitrostat] 0.4 mg SL Q5MIN PRN 03/22/21 Risperidone [Risperdal] 1 mg PO QPM 03/22/21 Objective - Vital Signs/Intake & Output Reviewed Vital Signs: Yes Vital Signs: Vital Signs x48h Temp Pulse Resp BP Pulse Ox 03/23/21 07:54 36.8 C 94 19 127/83 H 96 03/23/21 05:45 127/51 L 03/23/21 05:00 36.2 C L 98 18 112/33 L 94 Intake & Output: Intake & Output 03/20/21 03/21/21 03/22/21 03/23/21 23:59 23:59 23:59 23:59 Intake Total 960 300 Output Total 100 1200 Balance 860 -900 - Objective General Appearance: positive: No acute distress, Alert Eyes Bilateral: positive: Normal inspection, Conjunctivae nml ENT: positive: ENT inspection nml, Other (Nasal cannula in place.) Neck: positive: Nml inspection Respiratory: positive: No respiratory distress, Rhonchi. negative: Wheezes, Rales Cardiovascular: positive: Regular rate & rhythm, No murmur. negative: Tachycardia, Systolic murmur Abdomen: positive: Non-tender, No distention. negative: Tenderness Skin: positive: Warm, Dry Extremities: positive: No pedal edema Neurologic/Psychiatric: positive: Other (No focal deficits.). negative: Disoriented to person, Disoriented to place - Lab Results Fish Bones: 03/23/21 14:01 03/23/21 05:30 Other Labs: Lab Results x24hrs 03/23/21 03/23/21 03/22/21 Range/Units 05:30 05:30 22:05 WBC 4.5 L (4.8-10.8) x10^3/uL RBC 2.50 L (4.20-5.40) 10^6/uL Hgb 7.5 L 7.6 L (12.0-16.0) g/dL Hct 23.3 L 23.9 L (37.0-47.0) % MCV 93.2 (81.0-99.0) fL MCH 30.0 (27.0-31.0) pg MCHC 32.2 (32.0-36.0) g/dL RDW 13.2 (12.0-15.0) % Plt Count 162 (130-450) 10^3/uL MPV 12.2 H (7.9-10.8) fL Neut # (Auto) 3.3 (1.5-6.6) 10^3/uL Lymph # (Auto) 0.6 L (1.5-3.5) 10^3/uL [place] # (Auto) 0.6 (0.0-1.0) 10^3/uL Eos # (Auto) 0.0 (0.0-0.7) 10^3/uL Baso # (Auto) 0.0 (0.0-0.1) 10^3/uL Absolute Nucleated RBC 0.00 x10^3/uL Nucleated RBC % 0.0 /100WBC PT (9.9-12.6) secs INR (0.8-1.2) Sodium 142 (135-145) mmol/L Potassium 4.2 (3.5-5.0) mmol/L Chloride 102 (101-111) mmol/L Carbon Dioxide 32 (21-32) mmol/L Anion Gap 8.0 (6-13) BUN 19 (6-20) mg/dL Creatinine 0.6 (0.4-1.0) mg/dL Estimated GFR (MDRD) 96 (>89) Glucose 132 H (70-100) mg/dL Calcium 8.5 (8.5-10.3) mg/dL Nasal Adenovirus (PCR) Nasal B. parapertussis DNA (PCR) Nasal Coronavir 229E PCR Nasal Coronavir HKU1 PCR Nasal Coronavir NL63 PCR Nasal Coronavir OC43 PCR Nasal Enterovir/Rhinovir PCR Nasal Influenza B PCR Nasal Influenza A PCR Nasal Parainfluen 1 PCR Nasal Parainfluen 2 PCR Nasal Parainfluen 3 PCR Nasal Parainfluen 4 PCR Nasal RSV (PCR) Nasal B.pertussis DNA PCR Nasal C.pneumoniae (PCR) Jovanny Human Metapneumo PCR Nasal M.pneumoniae (PCR) Nasal SARS-CoV-2 (PCR) Blood Type Blood Type Recheck Antibody Screen 03/22/21 03/22/21 03/22/21 Range/Units 22:05 22:05 16:46 WBC 4.3 L (4.8-10.8) x10^3/uL RBC 2.73 L (4.20-5.40) 10^6/uL Hgb 8.2 L (12.0-16.0) g/dL Hct 25.7 L (37.0-47.0) % MCV 94.1 (81.0-99.0) fL MCH 30.0 (27.0-31.0) pg MCHC 31.9 L (32.0-36.0) g/dL RDW 13.3 (12.0-15.0) % Plt Count 151 (130-450) 10^3/uL MPV 12.0 H (7.9-10.8) fL Neut # (Auto) (1.5-6.6) 10^3/uL Lymph # (Auto) (1.5-3.5) 10^3/uL [place] # (Auto) (0.0-1.0) 10^3/uL Eos # (Auto) (0.0-0.7) 10^3/uL Baso # (Auto) (0.0-0.1) 10^3/uL Absolute Nucleated RBC x10^3/uL Nucleated RBC % /100WBC PT 12.0 (9.9-12.6) secs INR 1.1 (0.8-1.2) Sodium (135-145) mmol/L Potassium (3.5-5.0) mmol/L Chloride (101-111) mmol/L Carbon Dioxide (21-32) mmol/L Anion Gap (6-13) BUN (6-20) mg/dL Creatinine (0.4-1.0) mg/dL Estimated GFR (MDRD) (>89) Glucose (70-100) mg/dL Calcium (8.5-10.3) mg/dL Nasal Adenovirus (PCR) Nasal B. parapertussis DNA (PCR) Nasal Coronavir 229E PCR Nasal Coronavir HKU1 PCR Nasal Coronavir NL63 PCR Nasal Coronavir OC43 PCR Nasal Enterovir/Rhinovir PCR Nasal Influenza B PCR Nasal Influenza A PCR Nasal Parainfluen 1 PCR Nasal Parainfluen 2 PCR Nasal Parainfluen 3 PCR Nasal Parainfluen 4 PCR Nasal RSV (PCR) Nasal B.pertussis DNA PCR Nasal C.pneumoniae (PCR) Jovanny Human Metapneumo PCR Nasal M.pneumoniae (PCR) Nasal SARS-CoV-2 (PCR) Blood Type O POSITIVE Blood Type Recheck Antibody Screen NEGATIVE 03/22/21 03/22/21 Range/Units 15:35 08:20 WBC (4.8-10.8) x10^3/uL RBC (4.20-5.40) 10^6/uL Hgb (12.0-16.0) g/dL Hct (37.0-47.0) % MCV (81.0-99.0) fL MCH (27.0-31.0) pg MCHC (32.0-36.0) g/dL RDW (12.0-15.0) % Plt Count (130-450) 10^3/uL MPV (7.9-10.8) fL Neut # (Auto) (1.5-6.6) 10^3/uL Lymph # (Auto) (1.5-3.5) 10^3/uL [place] # (Auto) (0.0-1.0) 10^3/uL Eos # (Auto) (0.0-0.7) 10^3/uL Baso # (Auto) (0.0-0.1) 10^3/uL Absolute Nucleated RBC x10^3/uL Nucleated RBC % /100WBC PT (9.9-12.6) secs INR (0.8-1.2) Sodium (135-145) mmol/L Potassium (3.5-5.0) mmol/L Chloride (101-111) mmol/L Carbon Dioxide (21-32) mmol/L Anion Gap (6-13) BUN (6-20) mg/dL Creatinine (0.4-1.0) mg/dL Estimated GFR (MDRD) (>89) Glucose (70-100) mg/dL Calcium (8.5-10.3) mg/dL Nasal Adenovirus (PCR) NOT DETECTED Nasal B. parapertussis DNA (PCR) NOT DETECTED Nasal Coronavir 229E PCR NOT DETECTED Nasal Coronavir HKU1 PCR NOT DETECTED Nasal Coronavir NL63 PCR NOT DETECTED Nasal Coronavir OC43 PCR NOT DETECTED Nasal Enterovir/Rhinovir PCR NOT DETECTED Nasal Influenza B PCR NOT DETECTED Nasal Influenza A PCR NOT DETECTED Nasal Parainfluen 1 PCR NOT DETECTED Nasal Parainfluen 2 PCR NOT DETECTED Nasal Parainfluen 3 PCR NOT DETECTED Nasal Parainfluen 4 PCR NOT DETECTED Nasal RSV (PCR) NOT DETECTED Nasal B.pertussis DNA PCR NOT DETECTED Nasal C.pneumoniae (PCR) NOT DETECTED Jovanny Human Metapneumo PCR NOT DETECTED Nasal M.pneumoniae (PCR) NOT DETECTED Nasal SARS-CoV-2 (PCR) DETECTED A Blood Type Blood Type Recheck O POSITIVE Antibody Screen Assessment/Plan - Problem List (1) Iron deficiency anemia Impression: She is acute on chronic anemia. She is a history of iron deficiency anemia but this acute drop may be related to a GI bleed. Her stool is heme positive. Hemoglobin dropped initially while at [facility] but has since been stable at around 8-9. Her hemoglobin has been relatively stable overnight although slightly decreased this morning. No evidence of obvious bleeding. Will place on a clear liquid diet today and plan for EGD tomorrow with general surgery. She will start on a PPI. Continue iron supplementation. Monitor hemoglobin every 8 hours. Qualifiers: Iron deficiency anemia type: unspecified iron deficiency Qualified Code(s): D50.9 - Iron deficiency anemia, unspecified (2) Heme positive stool Impression: Her stool is heme positive and she has had a drop in her hemoglobin but this has been relatively stable. She has had EGDs in the past and reportedly had a duodenal polyp that was removed at [facility]. I spoke with general surgery today and our plan is to watch her today and see if her hemoglobin remains stable. If she is a further drop then we will pursue an endoscopy tomorrow. Continue PPI. (3) COVID-19 Impression: She has known COVID-19. X-ray revealed mild atypical pneumonia. She is not had an increase in her baseline oxygen requirements. We will continue to monitor. No indication for steroids. Continue contact precautions. (4) COPD (chronic obstructive pulmonary disease) Impression: Does not appear to be in exacerbation. She is on 2 L of oxygen at baseline. It is unclear why she is not on any inhalers at home. We will look to prescribe it to your tiotropium on discharge. Continue with albuterol as needed. Qualifiers: COPD type: unspecified COPD Qualified Code(s): J44.9 - Chronic obstructive pulmonary disease, unspecified (5) Chronic respiratory failure with hypoxia Impression: This is secondary to the COPD. She is on her baseline 2-3 L of oxygen. Continue supplemental oxygen for goal saturation greater than 88%. (6) Generalized weakness Impression: This is likely multifactorial related to the anemia as well as the COVID-19 infection. We have consulted PT and is known from her previous hospitalization that a SNF is recommended. We will look to get her to a SNF once medically stable. (7) Type 2 diabetes mellitus treated without insulin Impression: Her blood glucose is well controlled. We will place on sliding scale and hold her home glimepiride. (8) History of coronary artery disease Impression: Stable. We are continuing her home metoprolol and Lipitor per holding the aspirin until we rule out a GI bleed. (9) Bipolar 1 disorder Impression: Stable. Continue risperidone.
--- NOTE | 2021-03-23 08:52 | PHARMACY PROGRESS NOTE ---
- Best Possible Medication History Admit Date and Time: 03/22/211813 Processed by: Pharmacy Medication History completed: Yes Patient Interview: Completed Secondary Source(s): Physician records, Pharmacy records, Insurance records As the person ultimately responsible for medication therapy, providers are able to order a medication from an existing home medication list in [facility] via the "Reconcile Routine" prior to Confirmation of that medication by faculty support coordinator. Such practice is discouraged except when the physician, in their clinical judgment, deems that a medical need exists for a medication without regard to previous use.
[2021-03-23] MEDS ORDERED: DEXAMETHASONE 4 MG/ML VIAL IVP SCH (09:00)
--- NOTE | 2021-03-23 09:33 | CONSULTATION NOTE ---
Referring Provider Consult Date: 03/23/21 Chief Complaint - Chief Complaint Chief Complaint: weakness History of Present Illness - Admitted From Admitted From:: ED - History Obtained From Records Reviewed: yes History obtained from: chart review Exam Limitations: covid isolation - History of Present Illness HPI Comment/Other: She was discharged from [facility] the day prior to admission here. She was admitted to [facility] with weakness and was diagnosed with covid pneumonia, and TIA. She was started on plavix and aspirin. H and H 03/20/2021 8.6 and 26.5. She has history of CAD, O2 dependent COPD, CKD, DM. By report she has history of GI bleed 4 years ago requiring transfusion. Upper and lower endoscopy by report normal. She is a patient of farzaneh walden. 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 She had polypectomy in 2018 and ERCP and corona rveillance in 2019. She has history of pancreatic stent and stone debris. She has history of reactive granulation tissue at biliary and pancreatic sphincterotomy site. History - Past Medical History Cardiovascular: reports: Hypertension, High cholesterol, Coronary artery disease Respiratory: reports: COPD, Emphysema Neuro: reports: Dementia, TIA (see CT head, MRI, carotids, ECHO in HPI), Other (diminished mobility, uses walker, obese) Endocrine/Autoimmune: reports: Type 2 diabetes GI: reports: GERD ADMISSIONS EVALUATOR: reports: Other () : reports: Incontinence HEENT: reports: Chronic vision loss Psych: reports: Bipolar disorder Musculoskeletal: reports: Osteoarthritis Derm: reports: None MRSA Hx?: No Other Past Medical History: knee and back pain - Past Surgical History General: reports: Cholecystectomy Ortho: reports: Other (back surgery) Cardiovascular: reports: Coronary stent - Family & Social History Family History Comment/Other: Mom of old age in her 90s. Dad of bladder cancer? age 80s. 1 brother of suicide, alcoholic. 1/2 brother of suicide, alcoholic. 1/2 brother alive. 2 half sisters alive, DM. 4 kids. oldest son of massive heart attack in 50s, drug abuse and alcoholic Living arrangement: At home Living Situation: With family Social History Notes: Patient and have lived w daughter for 5 years. Smoked. 45 pk yr hs w stopping cigs 20 years ago. No problems w alcohol. - Substance History Use: Uses substance without health or social issues: NONE Abuse: Recurrent use of substance despite neg consequences: NONE Dependence: Experiences withdrawal or developed tolerances: NONE - POLST Patient has POLST: No POLST Status: DNR (but does want intubation) Meds/Allgy - Home Medications Home Medications: Ambulatory Orders Medication Instructions Recorded Confirmed Aspirin EC [Ecotrin] 81 mg PO DAILY 03/22/21 03/22/21 Atorvastatin Calcium 40 mg PO QPM 03/22/21 03/22/21 Famotidine [Pepcid] 20 mg PO BID 03/22/21 03/22/21 Furosemide [Lasix] 20 mg PO SUTUTHSA@0900 03/22/21 03/22/21 Furosemide [Lasix] 40 mg PO MOWEFR@0900 03/22/21 03/22/21 Gabapentin [Neurontin] 300 mg PO HS 03/22/21 03/22/21 Glimepiride [Amaryl] 4 mg PO QDBREAKFAST 03/22/21 03/22/21 Metoprolol Succinate [Toprol Xl] 12.5 mg PO BID 03/22/21 03/22/21 Nitroglycerin [Nitrostat] 0.4 mg SL Q5MIN PRN 03/22/21 03/22/21 Risperidone [Risperdal] 1 mg PO QPM 03/22/21 03/22/21 - Allergies Allergies/Adverse Reactions: Allergies Allergy/AdvReac Type Severity Reaction Status Date / Time No Known Drug Allergies Allergy Verified 03/22/21 08:16 Review of Systems - Other Findings Other Findings: 10 pt ros as above otherwise unremarkable Exam - Vital Signs Vital Signs: Vital Signs x48h Temp Pulse Resp BP Pulse Ox 03/23/21 07:54 36.8 C 94 19 127/83 H 96 03/23/21 05:45 127/51 L 03/23/21 05:00 36.2 C L 98 18 112/33 L 94 - Physical Exam General Appearance: positive: No acute distress, Alert ENT: positive: No signs of dehydration Respiratory: positive: No respiratory distress Abdomen: positive: No distention Conclusion/Plan - Problem List (1) Anemia Conclusion/Plan: She recently had a well documented TIA and was started on aspirin and plavix. She has history CAD, O2 dependent copd, dm, and currently has covid pneumonia. ASA class 4. 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 She is a patient of GI. She was anemic at [facility] and H and H has decreased slightly since. No bm since admit. An EGD here at [facility] is unlikely to be therapeutic. She is not actively bleeding at this time. Recommend clears, PPI, If H and H continues to drift can offer upper endoscopy tomorrow. If she has recurrent bleeding/ granulation tissue at her ampulla I would recommend transfer to [facility] for further care. Qualifiers: Anemia type: unspecified type Qualified Code(s): D64.9 - Anemia, unspecified - Lab Results Lab results reviewed: Yes Fish Bones: 03/23/21 05:30 03/23/21 05:30
[2021-03-23] MEDS: PANTOPRAZOLE 40 MG TABLET PO SCH (09:49)
[2021-03-23] MEDS ORDERED: ALBUTEROL 1 PUFF INH PRN ×2 (11:06→11:29)
[2021-03-23] MEDS: CHOLECALCIFEROL 25 MCG TABLET PO SCH (12:52)
[2021-03-23 14:07] LABS: HCT - HEMATOCRIT 24.1 % (37.0-47.0); HGB - HEMOGLOBIN 7.9 g/dL (12.0-16.0)
[2021-03-23 21:56] LABS: HCT - HEMATOCRIT 24.5 % (37.0-47.0); HGB - HEMOGLOBIN 7.7 g/dL (12.0-16.0)
[2021-03-23] MEDS: ATORVASTATIN 40 MG TABLET PO SCH (22:06)
[2021-03-23] MEDS: GABAPENTIN 300 MG CAPSULE PO SCH (22:06)
[2021-03-23] MEDS: risperiDONE 1 MG TABLET PO SCH (22:07)
[2021-03-24] MEDS: SODIUM CHLORIDE FLUSH 0.9% 10 ML SYRINGE IVP SCH ×3 (01:28→17:07)
[2021-03-24 06:17] LABS: BASOPHILS % (AUTO) 0.2 %; HCT - HEMATOCRIT 24.4 % (37.0-47.0); HGB - HEMOGLOBIN 7.6 g/dL (12.0-16.0); LYMPHOCYTES # (AUTO) 0.7 10^3/uL (1.5-3.5); LYMPHOCYTES % (AUTO) 14.1 %; MEAN CORPUSCULAR HEMOGLOBIN 29.8 pg (27.0-31.0); MEAN CORPUSCULAR HGB CONC 31.1 g/dL (32.0-36.0); MEAN CORPUSCULAR VOLUME 95.7 fL (81.0-99.0); MEAN PLATELET VOLUME 11.8 fL (7.9-10.8); MONOCYTES # (AUTO) 0.7 10^3/uL (0.0-1.0); MONOCYTES % (AUTO) 14.1 %; NEUTROPHILS # (AUTO) 3.6 10^3/uL (1.5-6.6); NEUTROPHILS % (AUTO) 71.4 %; PLT - PLATELET COUNT 190 10^3/uL (130-450); RED BLOOD COUNT 2.55 10^6/uL (4.20-5.40); RED CELL DISTRIBUTION WIDTH 13.3 % (12.0-15.0); WHITE BLOOD COUNT 5.1 x10^3/uL (4.8-10.8)
[2021-03-24 06:27] LABS: CALCIUM 8.5 mg/dL (8.5-10.3); CREATININE 0.7 mg/dL (0.4-1.0); POTASSIUM 4.1 mmol/L (3.5-5.0)
[2021-03-24] MEDS: PANTOPRAZOLE 40 MG TABLET PO SCH (06:31)
[2021-03-24 08:18] LABS: DIFFERENTIAL COMMENT MANUAL=AUTO DIFF; PLATELET ESTIMATE, MANUAL NORMAL (130-450,000) (NORMAL); PLATELET MORPHOLOGY NORMAL APPEARANCE (NORMAL)
[2021-03-24] MEDS: INSULIN ASPART 300 UNIT/3 ML PEN SUBQ SCH ×4 (08:20→21:38)
[2021-03-24] MEDS: CHOLECALCIFEROL 25 MCG TABLET PO SCH (08:57)
[2021-03-24] MEDS: METOPROLOL SUCCINATE 25 MG TABLET PO SCH ×2 (08:57→21:38)
[2021-03-24] MEDS ORDERED: SENNA 8.6 MG TABLET PO PRN (09:47)
[2021-03-24] MEDS ORDERED: DOCUSATE SODIUM 250 MG CAPSULE PO PRN (09:47)
[2021-03-24] MEDS: polyethylene glycoL 3350 17 GM PACKET PO SCH (10:50)
[2021-03-24] MEDS: guaiFENesin 600 MG TABLET PO SCH ×2 (10:50→21:38)
[2021-03-24] MEDS: FUROSEMIDE 20 MG TABLET PO SCH (10:50)
--- NOTE | 2021-03-24 14:57 | PROVIDER PROGRESS NOTE ---
Subjective - Prog Note Date Prog Note Date: 03/24/21 - Subjective Subjective: pt in isolation appears comfortable although mild tachypnea Objective - Vital Signs/Intake & Output Vital Signs: Vital Signs x48h Temp Pulse Pulse Resp BP Pulse Ox 03/24/21 12:59 37.9 C 98 24 131/55 H 98 03/24/21 09:51 91 18 03/24/21 07:51 36.7 C 85 24 125/58 L 97 Intake & Output: Intake & Output 03/21/21 03/22/21 03/23/21 03/24/21 23:59 23:59 23:59 23:59 Intake Total 960 1000 350 Output Total 100 2000 1700 Balance 860 1000 -1350 - Objective General Appearance: positive: No acute distress, Alert Respiratory: positive: No respiratory distress Abdomen: positive: No distention - Lab Results Fish Bones: 03/24/21 06:10 03/24/21 06:10 Other Labs: Lab Results x24hrs 03/24/21 03/24/21 03/23/21 Range/Units 06:10 06:10 21:53 WBC 5.1 (4.8-10.8) x10^3/uL RBC 2.55 L (4.20-5.40) 10^6/uL Hgb 7.6 L 7.7 L (12.0-16.0) g/dL Hct 24.4 L 24.5 L (37.0-47.0) % MCV 95.7 (81.0-99.0) fL MCH 29.8 (27.0-31.0) pg MCHC 31.1 L (32.0-36.0) g/dL RDW 13.3 (12.0-15.0) % Plt Count 190 (130-450) 10^3/uL MPV 11.8 H (7.9-10.8) fL Neut # (Auto) 3.6 (1.5-6.6) 10^3/uL Lymph # (Auto) 0.7 L (1.5-3.5) 10^3/uL [place] # (Auto) 0.7 (0.0-1.0) 10^3/uL Eos # (Auto) 0.0 (0.0-0.7) 10^3/uL Baso # (Auto) 0.0 (0.0-0.1) 10^3/uL Absolute Nucleated RBC 0.00 x10^3/uL Band Neuts % (Manual) Not Reportable Abnorm Lymph % (Manual) Not Reportable Nucleated RBC % 0.0 /100WBC Neutrophils # (Manual) Not Reportable Lymphocytes # (Manual) Not Reportable Monocytes # (Manual) Not Reportable Eosinophils # (Manual) Not Reportable Basophils # (Manual) Not Reportable Differential Comment MANUAL=AUTO DIFF Platelet Estimate NORMAL (130-450,000) (NORMAL) Platelet Morphology NORMAL APPEARANCE (NORMAL) RBC Morph Micro Appear 1+ POLYCHROMASIA (NORMAL) Sodium 142 (135-145) mmol/L Potassium 4.1 (3.5-5.0) mmol/L Chloride 100 L (101-111) mmol/L Carbon Dioxide 34 H (21-32) mmol/L Anion Gap 8.0 (6-13) BUN 20 (6-20) mg/dL Creatinine 0.7 (0.4-1.0) mg/dL Estimated GFR (MDRD) 81 L (>89) Glucose 122 H (70-100) mg/dL Calcium 8.5 (8.5-10.3) mg/dL 25-OH Vitamin D Total (30-100) ng/mL 03/23/21 Range/Units 14:01 WBC (4.8-10.8) x10^3/uL RBC (4.20-5.40) 10^6/uL Hgb (12.0-16.0) g/dL Hct (37.0-47.0) % MCV (81.0-99.0) fL MCH (27.0-31.0) pg MCHC (32.0-36.0) g/dL RDW (12.0-15.0) % Plt Count (130-450) 10^3/uL MPV (7.9-10.8) fL Neut # (Auto) (1.5-6.6) 10^3/uL Lymph # (Auto) (1.5-3.5) 10^3/uL [place] # (Auto) (0.0-1.0) 10^3/uL Eos # (Auto) (0.0-0.7) 10^3/uL Baso # (Auto) (0.0-0.1) 10^3/uL Absolute Nucleated RBC x10^3/uL Band Neuts % (Manual) Abnorm Lymph % (Manual) Nucleated RBC % /100WBC Neutrophils # (Manual) Lymphocytes # (Manual) Monocytes # (Manual) Eosinophils # (Manual) Basophils # (Manual) Differential Comment Platelet Estimate (NORMAL) Platelet Morphology (NORMAL) RBC Morph Micro Appear (NORMAL) Sodium (135-145) mmol/L Potassium (3.5-5.0) mmol/L Chloride (101-111) mmol/L Carbon Dioxide (21-32) mmol/L Anion Gap (6-13) BUN (6-20) mg/dL Creatinine (0.4-1.0) mg/dL Estimated GFR (MDRD) (>89) Glucose (70-100) mg/dL Calcium (8.5-10.3) mg/dL 25-OH Vitamin D Total 77 (30-100) ng/mL Assessment/Plan - Problem List (1) Anemia Impression: she has stable anemia. no evidence active bleeding she has covid pneumonia and recent well documented and significant TIA Discussed with anesthesia. We both believe risk of EGD at this time would offer more risk than benefit Recommend she follow up with her farzaneh francois plastic mould maker when she has recovered from covid Qualifiers: Anemia type: unspecified type Qualified Code(s): D64.9 - Anemia, unspecified
--- NOTE | 2021-03-24 16:25 | PROVIDER PROGRESS NOTE ---
Subjective - Prog Note Date Prog Note Date: 03/24/21 - Subjective Subjective: She reports feeling tired today. Denies any dyspnea. Still has a wet cough. She denies any pain. Current Medications - Current Medications Current Medications: Active Medications Acetaminophen (Acetaminophen 325 Mg Tablet) 650 mg PO Q4HR PRN PRN Reason: Pain 1 to 4 Albuterol (Albuterol 1 Puff) 2 puffs INH Q4H PRN PRN Reason: Wheezing Last Admin: 03/24/21 09:50 Dose: 2 puffs Atorvastatin Calcium (Atorvastatin 40 Mg Tablet) 40 mg PO QPM [facility] Last Admin: 03/23/21 22:06 Dose: 40 mg Cholecalciferol (Cholecalciferol 25 Mcg Tablet) 50 mcg PO DAILY [facility] Last Admin: 03/24/21 08:57 Dose: 50 mcg Docusate Sodium (Docusate Sodium 250 Mg Capsule) 250 - 500 mg PO DAILY PRN PRN Reason: Constipation Furosemide (Furosemide 20 Mg Tablet) 20 mg PO SUTUTHSA@0900 [facility] Last Admin: 03/24/21 10:50 Dose: 20 mg Furosemide (Furosemide 20 Mg Tablet) 40 mg PO MOWEFR@0900 [facility] Gabapentin (Gabapentin 300 Mg Capsule) 300 mg PO HS [facility] Last Admin: 03/23/21 22:06 Dose: 300 mg Guaifenesin (Guaifenesin 600 Mg Tablet) 600 mg PO BID [facility] Last Admin: 03/24/21 10:50 Dose: 600 mg Insulin Aspart (Insulin Aspart 300 Unit/3 Ml Pen) 1 - 9 unit SUBQ 0800,1200,1700,2100 [facility]; Protocol Last Admin: 03/24/21 10:50 Dose: Not Given Metoprolol Succinate (Metoprolol Succinate 25 Mg Tablet) 12.5 mg PO BID [facility] Last Admin: 03/24/21 08:57 Dose: 12.5 mg Ondansetron HCl (Ondansetron Odt 4 Mg Tablet) 4 mg TL Q6HR PRN PRN Reason: Nausea / Vomiting Ondansetron HCl (Ondansetron 4 Mg/2 Ml Vial) 4 mg IVP Q6HR PRN PRN Reason: Nausea / Vomiting Pantoprazole Sodium (Pantoprazole 40 Mg Tablet) 40 mg PO QDAC [facility] Last Admin: 03/24/21 06:31 Dose: 40 mg Polyethylene Glycol (Polyethylene Glycol 3350 17 Gm Packet) 17 gm PO DAILY [facility] Last Admin: 03/24/21 10:50 Dose: Not Given Risperidone (Risperidone 1 Mg Tablet) 1 mg PO QPM [facility] Last Admin: 03/23/21 22:07 Dose: 1 mg Senna (Senna 8.6 Mg Tablet) 8.6 - 17.2 mg PO DAILY PRN PRN Reason: Constipation Sodium Chloride (Sodium Chloride Flush 0.9% 10 Ml Syringe) 10 ml IVP PRN PRN PRN Reason: NEEDED PER PROVIDER ORDERS Last Admin: 03/22/21 22:36 Dose: 10 ml Sodium Chloride (Sodium Chloride Flush 0.9% 10 Ml Syringe) 10 ml IVP 0100,0900,1700 [facility] Last Admin: 03/24/21 08:57 Dose: 10 ml Aspirin EC [Ecotrin] 81 mg PO DAILY 03/22/21 Atorvastatin Calcium 40 mg PO QPM 03/22/21 Famotidine [Pepcid] 20 mg PO BID 03/22/21 Furosemide [Lasix] 20 mg PO SUTUTHSA@0900 03/22/21 Furosemide [Lasix] 40 mg PO MOWEFR@0900 03/22/21 Gabapentin [Neurontin] 300 mg PO HS 03/22/21 Glimepiride [Amaryl] 4 mg PO QDBREAKFAST 03/22/21 Metoprolol Succinate [Toprol Xl] 12.5 mg PO BID 03/22/21 Nitroglycerin [Nitrostat] 0.4 mg SL Q5MIN PRN 03/22/21 Risperidone [Risperdal] 1 mg PO QPM 03/22/21 Objective - Vital Signs/Intake & Output Reviewed Vital Signs: Yes Vital Signs: Vital Signs x48h Temp Pulse Pulse Resp BP Pulse Ox 03/24/21 12:59 37.9 C 98 24 131/55 H 98 03/24/21 09:51 91 18 Intake & Output: Intake & Output 03/21/21 03/22/21 03/23/21 03/24/21 23:59 23:59 23:59 23:59 Intake Total 960 1000 350 Output Total 100 2000 1700 Balance 860 -1000 -1350 - Objective General Appearance: positive: No acute distress, Alert, Other (Appears fati gued.) Eyes Bilateral: positive: Normal inspection, Conjunctivae nml ENT: positive: ENT inspection nml, Other (Nasal cannula in place.) Neck: positive: Nml inspection Respiratory: positive: No respiratory distress. negative: Wheezes, Rales Cardiovascular: positive: Regular rate & rhythm. negative: Tachycardia Abdomen: positive: Non-tender, No distention. negative: Tenderness Skin: positive: Warm, Dry Extremities: positive: No pedal edema Neurologic/Psychiatric: positive: Other (Moving all four extremities.). negative: Disoriented to person, Disoriented to place - Lab Results Fish Bones: 03/24/21 06:10 03/24/21 06:10 Other Labs: Lab Results x24hrs 03/24/21 03/24/21 03/23/21 Range/Units 06:10 06:10 21:53 WBC 5.1 (4.8-10.8) x10^3/uL RBC 2.55 L (4.20-5.40) 10^6/uL Hgb 7.6 L 7.7 L (12.0-16.0) g/dL Hct 24.4 L 24.5 L (37.0-47.0) % MCV 95.7 (81.0-99.0) fL MCH 29.8 (27.0-31.0) pg MCHC 31.1 L (32.0-36.0) g/dL RDW 13.3 (12.0-15.0) % Plt Count 190 (130-450) 10^3/uL MPV 11.8 H (7.9-10.8) fL Neut # (Auto) 3.6 (1.5-6.6) 10^3/uL Lymph # (Auto) 0.7 L (1.5-3.5) 10^3/uL [place] # (Auto) 0.7 (0.0-1.0) 10^3/uL Eos # (Auto) 0.0 (0.0-0.7) 10^3/uL Baso # (Auto) 0.0 (0.0-0.1) 10^3/uL Absolute Nucleated RBC 0.00 x10^3/uL Band Neuts % (Manual) Not Reportable Abnorm Lymph % (Manual) Not Reportable Nucleated RBC % 0.0 /100WBC Neutrophils # (Manual) Not Reportable Lymphocytes # (Manual) Not Reportable Monocytes # (Manual) Not Reportable Eosinophils # (Manual) Not Reportable Basophils # (Manual) Not Reportable Differential Comment MANUAL=AUTO DIFF Platelet Estimate NORMAL (130-450,000) (NORMAL) Platelet Morphology NORMAL APPEARANCE (NORMAL) RBC Morph Micro Appear 1+ POLYCHROMASIA (NORMAL) Sodium 142 (135-145) mmol/L Potassium 4.1 (3.5-5.0) mmol/L Chloride 100 L (101-111) mmol/L Carbon Dioxide 34 H (21-32) mmol/L Anion Gap 8.0 (6-13) BUN 20 (6-20) mg/dL Creatinine 0.7 (0.4-1.0) mg/dL Estimated GFR (MDRD) 81 L (>89) Glucose 122 H (70-100) mg/dL Calcium 8.5 (8.5-10.3) mg/dL 25-OH Vitamin D Total (30-100) ng/mL 03/23/21 Range/Units 14:01 WBC (4.8-10.8) x10^3/uL RBC (4.20-5.40) 10^6/uL Hgb (12.0-16.0) g/dL Hct (37.0-47.0) % MCV (81.0-99.0) fL MCH (27.0-31.0) pg MCHC (32.0-36.0) g/dL RDW (12.0-15.0) % Plt Count (130-450) 10^3/uL MPV (7.9-10.8) fL Neut # (Auto) (1.5-6.6) 10^3/uL Lymph # (Auto) (1.5-3.5) 10^3/uL [place] # (Auto) (0.0-1.0) 10^3/uL Eos # (Auto) (0.0-0.7) 10^3/uL Baso # (Auto) (0.0-0.1) 10^3/uL Absolute Nucleated RBC x10^3/uL Band Neuts % (Manual) Abnorm Lymph % (Manual) Nucleated RBC % /100WBC Neutrophils # (Manual) Lymphocytes # (Manual) Monocytes # (Manual) Eosinophils # (Manual) Basophils # (Manual) Differential Comment Platelet Estimate (NORMAL) Platelet Morphology (NORMAL) RBC Morph Micro Appear (NORMAL) Sodium (135-145) mmol/L Potassium (3.5-5.0) mmol/L Chloride (101-111) mmol/L Carbon Dioxide (21-32) mmol/L Anion Gap (6-13) BUN (6-20) mg/dL Creatinine (0.4-1.0) mg/dL Estimated GFR (MDRD) (>89) Glucose (70-100) mg/dL Calcium (8.5-10.3) mg/dL 25-OH Vitamin D Total 77 (30-100) ng/mL Assessment/Plan - Problem List (1) Iron deficiency anemia Impression: She has acute on chronic anemia but her hemoglobin has been stable since admission and reviewing her labs from [facility], they have also remained stable since then. At this point we will hold off on EGD given lack of significant bleeding and the fact that she is Covid positive with multiple comorbidities. We have continued her iron supplementation. Qualifiers: Iron deficiency anemia type: unspecified iron deficiency Qualified Code(s): D50.9 - Iron deficiency anemia, unspecified (2) Heme positive stool Impression: Her stool is heme positive but her hemoglobin has been stable since admission. I spoke with general surgery today and they prefer to hold off on an EGD given she is Covid positive with COPD on 2 L of oxygen at baseline. They feel that the benefits do not outweigh the risks at this point especially given the stable hemoglobin. We will continue PPI and the patient can follow-up on an outpatient basis with her hardware test engineer at [facility] to pursue an endoscopy if necessary. I discussed this with the patient's daughter who is in agreement with the plan. (3) COVID-19 Impression: She has known COVID-19. X-ray revealed mild atypical pneumonia. She has not had an increase in her baseline oxygen requirements. We will continue to monitor. No indication for steroids. Continue contact precautions. (4) COPD (chronic obstructive pulmonary disease) Impression: Does not appear to be in exacerbation. She is on 2 L of oxygen at baseline. It is unclear why she is not on any inhalers at home. We will look to prescribe it to your tiotropium on discharge. Continue with albuterol as needed. Qualifiers: COPD type: unspecified COPD Qualified Code(s): J44.9 - Chronic obstructive pulmonary disease, unspecified (5) Chronic respiratory failure with hypoxia Impression: This is secondary to the COPD. She is on her baseline 2 L of oxygen. Continue supplemental oxygen for goal saturation greater than 88%. (6) Generalized weakness Impression: This is likely multifactorial but suspect exacerbated by the COVID-19 infection. PT is recommending a SNF and we are looking to get her to SNF once she is accepted. Continue daily PT/OT and appreciate social work input. (7) Type 2 diabetes mellitus treated without insulin Impression: Her blood glucose is well controlled. We will place on sliding scale and hold her home glimepiride. (8) History of coronary artery disease Impression: Stable. We are continuing her home metoprolol and Lipitor. We will resume her home aspirin. (9) Bipolar 1 disorder Impression: Stable. Continue risperidone.
[2021-03-24] MEDS: GABAPENTIN 300 MG CAPSULE PO SCH (21:38)
[2021-03-24] MEDS: risperiDONE 1 MG TABLET PO SCH (21:38)
[2021-03-24] MEDS: ATORVASTATIN 40 MG TABLET PO SCH (21:38)
[2021-03-25] MEDS ORDERED: FUROSEMIDE 20 MG/2 ML VIAL IVP STA (00:03)
[2021-03-25] MEDS: SODIUM CHLORIDE FLUSH 0.9% 10 ML SYRINGE IVP SCH ×3 (00:20→17:50)
[2021-03-25] MEDS: PANTOPRAZOLE 40 MG TABLET PO SCH (06:01)
[2021-03-25 07:19] LABS: HCT - HEMATOCRIT 24.3 % (37.0-47.0); HGB - HEMOGLOBIN 7.5 g/dL (12.0-16.0); LYMPHOCYTES # (AUTO) 0.9 10^3/uL (1.5-3.5); LYMPHOCYTES % (AUTO) 18.5 %; MEAN CORPUSCULAR HEMOGLOBIN 29.6 pg (27.0-31.0); MEAN CORPUSCULAR HGB CONC 30.9 g/dL (32.0-36.0); MEAN PLATELET VOLUME 11.7 fL (7.9-10.8); MONOCYTES # (AUTO) 0.7 10^3/uL (0.0-1.0); MONOCYTES % (AUTO) 15.1 %; NEUTROPHILS # (AUTO) 3.1 10^3/uL (1.5-6.6); NEUTROPHILS % (AUTO) 65.8 %; NRBC ABSOLUTE COUNT (AUTO) 0.02 x10^3/uL; NUCLEATED RED BLOOD CELLS AUTO 0.4 /100WBC; PLT - PLATELET COUNT 208 10^3/uL (130-450); RED BLOOD COUNT 2.53 10^6/uL (4.20-5.40); RED CELL DISTRIBUTION WIDTH 13.2 % (12.0-15.0); WHITE BLOOD COUNT 4.8 x10^3/uL (4.8-10.8)
[2021-03-25 07:25] LABS: CREATININE 0.9 mg/dL (0.4-1.0); POTASSIUM 3.7 mmol/L (3.5-5.0)
[2021-03-25] MEDS: INSULIN ASPART 300 UNIT/3 ML PEN SUBQ SCH ×4 (08:26→22:34)
[2021-03-25] MEDS ORDERED: ALBUTEROL NEB 2.5 MG/3 ML INH PRN (10:10)
[2021-03-25] MEDS: FUROSEMIDE 20 MG TABLET PO SCH (10:12)
[2021-03-25] MEDS: ASPIRIN CHEW 81 MG TABLET PO SCH ×2 (10:12→13:30)
[2021-03-25] MEDS: CHOLECALCIFEROL 25 MCG TABLET PO SCH (10:12)
[2021-03-25] MEDS: FERROUS SULFATE 325 MG TABLET PO SCH (10:12)
[2021-03-25] MEDS: guaiFENesin 600 MG TABLET PO SCH ×2 (10:13→22:33)
[2021-03-25] MEDS: METOPROLOL SUCCINATE 25 MG TABLET PO SCH ×3 (10:13→22:28)
[2021-03-25] MEDS: polyethylene glycoL 3350 17 GM PACKET PO SCH (10:13)
--- NOTE | 2021-03-25 10:21 | PROVIDER PROGRESS NOTE ---
Subjective - Prog Note Date Prog Note Date: 03/25/21 - Subjective Subjective: She is lethargic this morning and barely able to speak. Current Medications - Current Medications Current Medications: Active Medications Acetaminophen (Acetaminophen 325 Mg Tablet) 650 mg PO Q4HR PRN PRN Reason: Pain 1 to 4 Albuterol (Albuterol 1 Puff) 2 puffs INH Q4H PRN PRN Reason: Wheezing Last Admin: 03/24/21 09:50 Dose: 2 puffs Albuterol (Albuterol Neb 2.5 Mg/3 Ml) 2.5 mg INH RTQ4H PRN PRN Reason: Wheezing Albuterol/Ipratropium (Ipratropium/Albuterol 3 Ml Neb) 3 ml INH Q4HR COUNT [facility]CLUD[facility] Last Admin: 03/25/21 11:12 Dose: 3 ml Aspirin (Aspirin Chew 81 Mg Tablet) 81 mg PO DAILY COUNT [facility] Last Admin: 03/25/21 10:12 Dose: Not Given Atorvastatin Calcium (Atorvastatin 40 Mg Tablet) 40 mg PO QPM COUNT [facility] Last Admin: 03/24/21 21:38 Dose: 40 mg Cholecalciferol (Cholecalciferol 25 Mcg Tablet) 50 mcg PO DAILY [facility] Last Admin: 03/25/21 10:12 Dose: Not Given Docusate Sodium (Docusate Sodium 250 Mg Capsule) 250 - 500 mg PO DAILY PRN PRN Reason: Constipation Ferrous Sulfate (Ferrous Sulfate 325 Mg Tablet) 325 mg PO DAILYWM COUNT [facility] Last Admin: 03/25/21 10:12 Dose: Not Given Furosemide (Furosemide 20 Mg Tablet) 20 mg PO SUTUTHSA@0900 [facility] Last Admin: 03/24/21 10:50 Dose: 20 mg Furosemide (Furosemide 20 Mg Tablet) 40 mg PO MOWEFR@0900 [facility] Last Admin: 03/25/21 10:12 Dose: Not Given Guaifenesin (Guaifenesin 600 Mg Tablet) 600 mg PO BID [facility] Last Admin: 03/25/21 10:13 Dose: Not Given Ceftriaxone Sodium 1 gm/ (Sodium Chloride) 100 mls @ 200 mls/hr IV DAILY [facility] Last Infusion: 03/25/21 11:07 Dose: Infused Insulin Aspart (Insulin Aspart 300 Unit/3 Ml Pen) 1 - 9 unit SUBQ 0 800,1200,1700,2100 [facility]; Protocol Last Admin: 03/25/21 11:22 Dose: Not Given Methylprednisolone (Methylprednisolone Succinate 40 Mg/Ml Vial) 60 mg IVP BID [facility] Last Admin: 03/25/21 10:34 Dose: 60 mg Metoprolol Succinate (Metoprolol Succinate 25 Mg Tablet) 12.5 mg PO BID [facility] Last Admin: 03/25/21 10:13 Dose: Not Given Ondansetron HCl (Ondansetron Odt 4 Mg Tablet) 4 mg TL Q6HR PRN PRN Reason: Nausea / Vomiting Ondansetron HCl (Ondansetron 4 Mg/2 Ml Vial) 4 mg IVP Q6HR PRN PRN Reason: Nausea / Vomiting Pantoprazole Sodium (Pantoprazole 40 Mg Tablet) 40 mg PO QDAC COUNT [facility] Last Admin: 03/25/21 06:01 Dose: 40 mg Polyethylene Glycol (Polyethylene Glycol 3350 17 Gm Packet) 17 gm PO DAILY [facility] Last Admin: 03/25/21 10:13 Dose: Not Given Risperidone (Risperidone 1 Mg Tablet) 1 mg PO QPM [facility] Last Admin: 03/24/21 21:38 Dose: 1 mg Senna (Senna 8.6 Mg Tablet) 8.6 - 17.2 mg PO DAILY PRN PRN Reason: Constipation Sodium Chloride (Sodium Chloride Flush 0.9% 10 Ml Syringe) 10 ml IVP PRN PRN PRN Reason: NEEDED PER PROVIDER ORDERS Last Admin: 03/22/21 22:36 Dose: 10 ml Sodium Chloride (Sodium Chloride Flush 0.9% 10 Ml Syringe) 10 ml IVP 0100,0900,1700 [facility] Last Admin: 03/25/21 08:27 Dose: 10 ml Aspirin EC [Ecotrin] 81 mg PO DAILY 03/22/21 Atorvastatin Calcium 40 mg PO QPM 03/22/21 Famotidine [Pepcid] 20 mg PO BID 03/22/21 Furosemide [Lasix] 20 mg PO SUTUTHSA@0900 03/22/21 Furosemide [Lasix] 40 mg PO MOWEFR@0903/22/21 Gabapentin [Neurontin] 300 mg PO HS 03/22/21 Glimepiride [Amaryl] 4 mg PO QDBREAKFAST 03/22/21 Metoprolol Succinate [Toprol Xl] 12.5 mg PO BID 03/22/21 Nitroglycerin [Nitrostat] 0.4 mg SL Q5MIN PRN 03/22/21 Risperidone [Risperdal] 1 mg PO QPM 03/22/21 Objective - Vital Signs/Intake & Output Reviewed Vital Signs: Yes Vital Signs: Vital Signs x48h Temp Pulse Pulse Pulse Resp BP Pulse Ox 03/25/21 10:12 93 16 146/81 H 93 03/25/21 08:50 87 20 03/25/21 07:51 37.4 C 92 24 138/45 H 99 03/25/21 06:22 37.1 C 99 23 105/75 95 03/25/21 05:00 92 19 141/53 H 99 03/25/21 04:15 85 130/47 L 97 03/25/21 03:00 128/46 L 99 Intake & Output: Intake & Output 03/22/21 03/23/21 03/24/21 03/25/21 23:59 23:59 23:59 23:59 Intake Total 960 1000 650 100 Output Total 100 2000 2050 550 Balance 860 -1000 -1400 -450 - Objective General Appearance: positive: Lethargic, Other (She will open her eyes to verbal stimuli but can barely speak. Appears quite lethargic.) Eyes Bilateral: positive: PERRL, Conjunctivae nml ENT: positive: ENT inspection nml, Other (Nasal cannula in place.) Respiratory: positive: No respiratory distress, Wheezes, Rhonchi, Other (Tachypnic). negative: Breath sounds nml Cardiovascular: positive: Regular rate & rhythm. negative: Tachycardia Abdomen: positive: Non-tender, No distention. negative: Tenderness Skin: positive: Warm, Dry Extremities: positive: No pedal edema Neurologic/Psychiatric: positive: Other (No deficits. Still moving all four extremities.) - Lab Results Fish Bones: 03/25/21 07:10 03/25/21 07:10 Other Labs: Lab Results x24hrs 03/25/21 03/25/21 Range/Units 07:10 07:10 WBC 4.8 (4.8-10.8) x10^3/uL RBC 2.53 L (4.20-5.40) 10^6/uL Hgb 7.5 L (12.0-16.0) g/dL Hct 24.3 L (37.0-47.0) % MCV 96.0 (81.0-99.0) fL MCH 29.6 (27.0-31.0) pg MCHC 30.9 L (32.0-36.0) g/dL RDW 13.2 (12.0-15.0) % Plt Count 208 (130-450) 10^3/uL MPV 11.7 H (7.9-10.8) fL Neut # (Auto) 3.1 (1.5-6.6) 10^3/uL Lymph # (Auto) 0.9 L (1.5-3.5) 10^3/uL [place] # (Auto) 0.7 (0.0-1.0) 10^3/uL Eos # (Auto) 0.0 (0.0-0.7) 10^3/uL Baso # (Auto) 0.0 (0.0-0.1) 10^3/uL Absolute Nucleated RBC 0.02 x10^3/uL Nucleated RBC % 0.4 /100WBC Sodium 142 (135-145) mmol/L Potassium 3.7 (3.5-5.0) mmol/L Chloride 96 L (101-111) mmol/L Carbon Dioxide 38 H (21-32) mmol/L Anion Gap 8.0 (6-13) BUN 18 (6-20) mg/dL Creatinine 0.9 (0.4-1.0) mg/dL Estimated GFR (MDRD) 60 L (>89) Glucose 178 H (70-100) mg/dL Calcium 8.0 L (8.5-10.3) mg/dL Assessment/Plan - Problem List (1) Altered mental status Impression: She is definitely quite lethargic this morning but does wake up and open her eyes to verbal stimuli. She can move her hands as not but have any focal deficits. I am concerned given elevated bicarb and this morning that she may be hypercapnic. She is wheezing and has rhonchi this morning so I am concerned that she is having a COPD exacerbation which may have caused the hypercapnia. I ordered an ABG but evidently this did not show significant hypercapnia that would explain her mentation. Check a TSH and ammonia which are within normal limits. We did not do a CT of the head because she had no obvious deficits suggest a stroke. I discontinued her home gabapentin and upon reevaluation later in the afternoon, she is improved and able to eat lunch. I do have a sharon r cause of why she was so lethargic this morning but we will continue to monitor at this time. Qualifiers: Altered mental status type: somnolence Qualified Code(s): R40.0 - Somnolence (2) COPD (chronic obstructive pulmonary disease) Impression: She is now most definitely in a COPD exacerbation likely triggered by the Covid infection. She is not more hypoxic compared to her baseline but she is wheezing with rhonchi. We will start her on Solu-Medrol IV twice daily switch to p.o. prednisone once she can take p.o. consistently. Duo nebs every 4 hours albuterol as needed. I have also started her on ceftriaxone IV for COPD exacerbation. Qualifiers: COPD type: COPD with acute exacerbation Qualified Code(s): J44.1 - Chronic obstructive pulmonary disease with (acute) exacerbation (3) Iron deficiency anemia Impression: Her hemoglobin has been stable without evidence of significant bleeding. Did not do an endoscopy due to the Covid infection and the fact hemoglobin is stable. Continue iron supplementation. Qualifiers: Iron deficiency anemia type: unspecified iron deficiency Qualified Code(s): D50.9 - Iron deficiency anemia, unspecified (4) Heme positive stool Impression: Her hemoglobin has been stable and she not had evidence of significant bleeding. We did not do an endoscopy due to the Covid infection and her comorbidities. This can be considered on outpatient basis at [facility] where she had her previous endoscopies. Continue PPI. (5) COVID-19 Impression: This likely triggered the COPD exacerbation. She is not hypoxic compared to her baseline. She is on prednisone for the COPD exacerbation. Continue contact precautions. (6) Chronic respiratory failure with hypoxia Impression: This is stable. She is on her baseline 2 to 3 L of oxygen. (7) Generalized weakness Impression: She continues work with PT on a daily basis. She will need a SNF on discharge and she has been tentatively accepted at a SNF in [place] for this Sunday. (8) Type 2 diabetes mellitus treated without insulin Impression: Her blood glucose is controlled without the use of glimepiride. Now that she is on prednisone, we will monitor closely as she may need Lantus. (9) History of coronary artery disease Impression: Stable. We are continuing her home metoprolol and Lipitor. We will resume her home aspirin. (10) Bipolar 1 disorder Impression: Continue risperidone.
[2021-03-25] MEDS: cefTRIAXone 1 GM in SODIUM CHLORIDE 0.9% MINIBAG 100 ML IV SCH (10:33)
[2021-03-25] MEDS: methylPREDNISolone SUCCINATE 40 MG/ML VIAL IVP SCH ×2 (10:34→22:28)
[2021-03-25 10:38] LABS: ABG BASE EXCESS 9.5 mmol/L (-2.0-3.0); ABG HCO3 34.8 mmol/L (22.0-26.0); ABG OXYGEN SATURATION 90 % (94-98); ABG PCO2 53 mmHg (34-45); ABG PH 7.43 (7.35-7.45); ABG PO2 57 mmHg (80-100); ABG TCO2 36.5 MMOL/L (21.0-29.0)
[2021-03-25 10:39] LABS: ALLEN TEST POSITIVE
[2021-03-25] MEDS: IPRATROPIUM/ALBUTEROL 3 ML NEB INH SCH ×4 (11:12→20:27)
[2021-03-25 11:35] LABS: THYROID STIMULATING HORMONE 0.34 uIU/mL (0.34-5.60)
[2021-03-25] MEDS ORDERED: INSULIN ASPART 300 UNIT/3 ML PEN SUBQ SCH (17:48)
[2021-03-25] MEDS ORDERED: INSULIN GLARGINE 300 UNIT/3 ML PEN SUBQ SCH (21:00)
[2021-03-25] MEDS: SODIUM CHLORIDE FLUSH 0.9% 10 ML SYRINGE IVP PRN (22:29)
[2021-03-25] MEDS: risperiDONE 1 MG TABLET PO SCH (22:33)
[2021-03-25] MEDS: ATORVASTATIN 40 MG TABLET PO SCH (22:33)
[2021-03-26] MEDS: SODIUM CHLORIDE FLUSH 0.9% 10 ML SYRINGE IVP SCH ×4 (00:40→23:55)
[2021-03-26] MEDS: IPRATROPIUM/ALBUTEROL 3 ML NEB INH SCH ×5 (03:49→21:38)
[2021-03-26 05:49] LABS: HCT - HEMATOCRIT 22.8 % (37.0-47.0); HGB - HEMOGLOBIN 7.3 g/dL (12.0-16.0); LYMPHOCYTES # (AUTO) 0.4 10^3/uL (1.5-3.5); LYMPHOCYTES % (AUTO) 6.5 %; MEAN CORPUSCULAR HEMOGLOBIN 30.2 pg (27.0-31.0); MEAN CORPUSCULAR VOLUME 94.2 fL (81.0-99.0); MEAN PLATELET VOLUME 12.2 fL (7.9-10.8); MONOCYTES # (AUTO) 0.3 10^3/uL (0.0-1.0); MONOCYTES % (AUTO) 5.5 %; NEUTROPHILS # (AUTO) 5.2 10^3/uL (1.5-6.6); NEUTROPHILS % (AUTO) 87.7 %; PLT - PLATELET COUNT 213 10^3/uL (130-450); RED BLOOD COUNT 2.42 10^6/uL (4.20-5.40); RED CELL DISTRIBUTION WIDTH 13.1 % (12.0-15.0)
[2021-03-26 05:56] LABS: CALCIUM 8.5 mg/dL (8.5-10.3); CREATININE 0.9 mg/dL (0.4-1.0); POTASSIUM 3.7 mmol/L (3.5-5.0)
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
[2021-03-26] MEDS: PANTOPRAZOLE 40 MG TABLET PO SCH (09:32)
[2021-03-26] MEDS: ASPIRIN CHEW 81 MG TABLET PO SCH (09:32)
[2021-03-26] MEDS: polyethylene glycoL 3350 17 GM PACKET PO SCH (09:33)
[2021-03-26] MEDS: FUROSEMIDE 20 MG TABLET PO SCH (09:33)
[2021-03-26] MEDS: FERROUS SULFATE 325 MG TABLET PO SCH (09:33)
[2021-03-26] MEDS: guaiFENesin 600 MG TABLET PO SCH ×2 (09:33→20:57)
[2021-03-26] MEDS: METOPROLOL SUCCINATE 25 MG TABLET PO SCH ×2 (09:33→20:56)
[2021-03-26] MEDS: methylPREDNISolone SUCCINATE 40 MG/ML VIAL IVP SCH ×2 (09:33→20:50)
[2021-03-26] MEDS: cefTRIAXone 1 GM in SODIUM CHLORIDE 0.9% MINIBAG 100 ML IV SCH (09:34)
[2021-03-26] MEDS: MULTIVITAMIN W/MINERALS TABLET PO SCH (09:34)
[2021-03-26] MEDS: INSULIN ASPART 300 UNIT/3 ML PEN SUBQ SCH ×7 (09:34→20:51)
[2021-03-26] MEDS ORDERED: MIN OIL/DIMETHICON/COCONUT OIL 92 GM TUBE TOP PRN (10:13)
[2021-03-26] MEDS: ATORVASTATIN 40 MG TABLET PO SCH (20:54)
[2021-03-26] MEDS: GABAPENTIN 300 MG CAPSULE PO SCH (20:56)
[2021-03-26] MEDS: risperiDONE 1 MG TABLET PO SCH (20:56)
[2021-03-26] MEDS ORDERED: INSULIN GLARGINE 300 UNIT/3 ML PEN SUBQ SCH (21:00)
[2021-03-27 05:53] LABS: LYMPHOCYTES # (AUTO) 0.5 10^3/uL (1.5-3.5); LYMPHOCYTES % (AUTO) 6.9 %; MEAN CORPUSCULAR HEMOGLOBIN 29.1 pg (27.0-31.0); MEAN CORPUSCULAR HGB CONC 31.9 g/dL (32.0-36.0); MEAN CORPUSCULAR VOLUME 91.3 fL (81.0-99.0); MEAN PLATELET VOLUME 11.9 fL (7.9-10.8); MONOCYTES # (AUTO) 0.4 10^3/uL (0.0-1.0); NEUTROPHILS # (AUTO) 6.3 10^3/uL (1.5-6.6); NEUTROPHILS % (AUTO) 87.7 %; NRBC ABSOLUTE COUNT (AUTO) 0.02 x10^3/uL; NUCLEATED RED BLOOD CELLS AUTO 0.3 /100WBC; PLT - PLATELET COUNT 239 10^3/uL (130-450); RED CELL DISTRIBUTION WIDTH 13.1 % (12.0-15.0); WHITE BLOOD COUNT 7.2 x10^3/uL (4.8-10.8)
[2021-03-27 05:58] LABS: HGB - HEMOGLOBIN 6.7 g/dL (12.0-16.0)
[2021-03-27 06:07] LABS: CALCIUM 8.4 mg/dL (8.5-10.3); CREATININE 0.9 mg/dL (0.4-1.0); POTASSIUM 3.5 mmol/L (3.5-5.0)
[2021-03-27] MEDS: PANTOPRAZOLE 40 MG TABLET PO SCH (06:50)
[2021-03-27] MEDS: IPRATROPIUM/ALBUTEROL 3 ML NEB INH SCH ×4 (07:08→19:58)
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
[2021-03-27] MEDS ORDERED: SODIUM CHLORIDE 0.9% 250 ML IV ONE (09:07)
[2021-03-27] MEDS ORDERED: SODIUM CHLORIDE 0.9% MINIBAG 100 ML IV ONE (09:08)
[2021-03-27] MEDS: FERROUS SULFATE 325 MG TABLET PO SCH (10:44)
[2021-03-27] MEDS: INSULIN ASPART 300 UNIT/3 ML PEN SUBQ SCH ×7 (10:45→21:26)
[2021-03-27] MEDS: MULTIVITAMIN W/MINERALS TABLET PO SCH (10:46)
[2021-03-27] MEDS: predniSONE 20 MG TABLET PO SCH (10:46)
[2021-03-27] MEDS: FUROSEMIDE 20 MG TABLET PO SCH (10:47)
[2021-03-27] MEDS: ASPIRIN CHEW 81 MG TABLET PO SCH (10:47)
[2021-03-27] MEDS: guaiFENesin 600 MG TABLET PO SCH ×2 (10:48→21:26)
[2021-03-27] MEDS: SODIUM CHLORIDE FLUSH 0.9% 10 ML SYRINGE IVP SCH ×3 (10:48→23:59)
[2021-03-27] MEDS: polyethylene glycoL 3350 17 GM PACKET PO SCH (10:48)
[2021-03-27] MEDS: METOPROLOL SUCCINATE 25 MG TABLET PO SCH ×2 (10:48→21:25)
[2021-03-27 13:55] LABS: BILIRUBIN,URINE NEGATIVE (NEGATIVE); GLUCOSE, URINE (UA) >=1000 mg/dL (NEGATIVE); KETONES,URINE (UA) NEGATIVE (NEGATIVE); LEUKOCYTE ESTERASE, URINE NEGATIVE (NEGATIVE); NITRITE,URINE NEGATIVE (NEGATIVE); OCCULT BLOOD,URINE NEGATIVE (NEGATIVE); PROTEIN,URINE NEGATIVE (NEGATIVE); UROBILINOGEN,URINE 0.2 (NORMAL) E.U./dL (NORMAL)
[2021-03-27] MEDS: cefTRIAXone 1 GM in SODIUM CHLORIDE 0.9% MINIBAG 100 ML IV SCH (14:01)
[2021-03-27 14:10] LABS: BACTERIA,URINE Rare /HPF (None Seen); CLARITY,URINE CLEAR (CLEAR); RBC,URINE 0-5 /HPF (0-5); SQUAMOUS EPITHELIAL CELL,UR RARE Squamous (<= Few); WBC,URINE 0-3 /HPF (0-5)
[2021-03-27 16:54] LABS: HCT - HEMATOCRIT 27.7 % (37.0-47.0); HGB - HEMOGLOBIN 9.2 g/dL (12.0-16.0)
[2021-03-27] MEDS: ACETAMINOPHEN 325 MG TABLET PO PRN (21:22)
[2021-03-27] MEDS: GABAPENTIN 300 MG CAPSULE PO SCH (21:23)
[2021-03-27] MEDS: risperiDONE 1 MG TABLET PO SCH (21:24)
[2021-03-27] MEDS: ATORVASTATIN 40 MG TABLET PO SCH (21:24)
[2021-03-27] MEDS: INSULIN GLARGINE 300 UNIT/3 ML PEN SUBQ SCH (21:27)
[2021-03-28 04:54] LABS: BASOPHILS % (AUTO) 0.1 %; HCT - HEMATOCRIT 28.5 % (37.0-47.0); HGB - HEMOGLOBIN 9.3 g/dL (12.0-16.0); LYMPHOCYTES # (AUTO) 0.6 10^3/uL (1.5-3.5); LYMPHOCYTES % (AUTO) 7.9 %; MEAN CORPUSCULAR HEMOGLOBIN 27.9 pg (27.0-31.0); MEAN CORPUSCULAR HGB CONC 32.6 g/dL (32.0-36.0); MEAN CORPUSCULAR VOLUME 85.6 fL (81.0-99.0); MEAN PLATELET VOLUME 11.6 fL (7.9-10.8); MONOCYTES # (AUTO) 0.6 10^3/uL (0.0-1.0); MONOCYTES % (AUTO) 7.8 %; NEUTROPHILS # (AUTO) 6.3 10^3/uL (1.5-6.6); NEUTROPHILS % (AUTO) 82.9 %; NRBC ABSOLUTE COUNT (AUTO) 0.06 x10^3/uL; NUCLEATED RED BLOOD CELLS AUTO 0.8 /100WBC; PLT - PLATELET COUNT 239 10^3/uL (130-450); RED BLOOD COUNT 3.33 10^6/uL (4.20-5.40); RED CELL DISTRIBUTION WIDTH 16.8 % (12.0-15.0); WHITE BLOOD COUNT 7.6 x10^3/uL (4.8-10.8)
[2021-03-28 05:02] LABS: CALCIUM 8.4 mg/dL (8.5-10.3); CREATININE 0.8 mg/dL (0.4-1.0); POTASSIUM 3.8 mmol/L (3.5-5.0)
[2021-03-28] MEDS ORDERED: IPRATROPIUM/ALBUTEROL 3 ML NEB INH PRN (06:36)
[2021-03-28] MEDS: PANTOPRAZOLE 40 MG TABLET PO SCH (06:37)
[2021-03-28] MEDS: INSULIN ASPART 300 UNIT/3 ML PEN SUBQ SCH ×7 (08:04→20:39)
[2021-03-28] MEDS: MULTIVITAMIN W/MINERALS TABLET PO SCH (08:07)
[2021-03-28] MEDS: predniSONE 20 MG TABLET PO SCH (08:07)
[2021-03-28] MEDS: FERROUS SULFATE 325 MG TABLET PO SCH (08:07)
[2021-03-28] MEDS: ASPIRIN CHEW 81 MG TABLET PO SCH (09:56)
[2021-03-28] MEDS: FUROSEMIDE 20 MG TABLET PO SCH (09:56)
[2021-03-28] MEDS: guaiFENesin 600 MG TABLET PO SCH ×2 (09:56→20:38)
[2021-03-28] MEDS: METOPROLOL SUCCINATE 25 MG TABLET PO SCH ×2 (09:57→20:38)
[2021-03-28] MEDS: polyethylene glycoL 3350 17 GM PACKET PO SCH (09:57)
[2021-03-28] MEDS: cefTRIAXone 1 GM in SODIUM CHLORIDE 0.9% MINIBAG 100 ML IV SCH (09:57)
[2021-03-28] MEDS: SODIUM CHLORIDE FLUSH 0.9% 10 ML SYRINGE IVP SCH ×2 (09:59→16:55)
--- NOTE | 2021-03-28 11:52 | PROVIDER PROGRESS NOTE ---
Subjective - Prog Note Date Prog Note Date: 03/28/21 - Subjective Subjective: She reports feeling short of breath today. She also complains of chest pain that is sharp in nature and began this morning. Is located over the left side of her chest. She has had a productive cough. Current Medications - Current Medications Current Medications: Active Medications Acetaminophen (Acetaminophen 325 Mg Tablet) 650 mg PO Q4HR PRN PRN Reason: Pain 1 to 4 Last Admin: 03/27/21 21:22 Dose: 650 mg Albuterol (Albuterol 1 Puff) 2 puffs INH Q4H PRN PRN Reason: Wheezing Last Admin: 03/24/21 09:50 Dose: 2 puffs Albuterol (Albuterol Neb 2.5 Mg/3 Ml) 2.5 mg INH RTQ4H PRN PRN Reason: Wheezing Albuterol/Ipratropium (Ipratropium/Albuterol 3 Ml Neb) 3 ml INH Q4HR PRN PRN Reason: Wheezing Last Admin: 03/28/21 08:38 Dose: 3 ml Aspirin (Aspirin Chew 81 Mg Tablet) 81 mg PO DAILY [facility] Last Admin: 03/28/21 09:56 Dose: 81 mg Atorvastatin Calcium (Atorvastatin 40 Mg Tablet) 40 mg PO QPM [facility] Last Admin: 03/27/21 21:24 Dose: 40 mg Docusate Sodium (Docusate Sodium 250 Mg Capsule) 250 - 500 mg PO DAILY PRN PRN Reason: Constipation Ferrous Sulfate (Ferrous Sulfate 325 Mg Tablet) 325 mg PO DAILYWM [facility] Last Admin: 03/28/21 08:07 Dose: 325 mg Furosemide (Furosemide 20 Mg Tablet) 20 mg PO SUTUTHSA@0900 [facility] Last Admin: 03/27/21 10:47 Dose: 20 mg Furosemide (Furosemide 20 Mg Tablet) 40 mg PO MOWEFR@0900 [facility] Last Admin: 03/28/21 09:56 Dose: 40 mg Gabapentin (Gabapentin 300 Mg Capsule) 300 mg PO QPM [facility] Last Admin: 03/27/21 21:23 Dose: 300 mg Guaifenesin (Guaifenesin 600 Mg Tablet) 600 mg PO BID [facility] Last Admin: 03/28/21 09:56 Dose: 600 mg Ceftriaxone Sodium 1 gm/ (Sodium Chloride) 100 mls @ 200 mls/hr IV DAILY [facility] Stop: 03/29/21 13:00 Last Infusion: 03/28/21 10:18 Dose: 0 mls/hr Insulin Aspart (Insulin Aspart 300 Unit/3 Ml Pen) 3 - 11 unit SUBQ 0800,1200,1700,2100 [facility]; Protocol Last Admin: 03/28/21 08:04 Dose: Not Given Insulin Aspart (Insulin Aspart 300 Unit/3 Ml Pen) 6 unit SUBQ TIDWM [facility] Last Admin: 03/28/21 08:04 Dose: 6 unit Insulin Glargine (Insulin Glargine 300 Unit/3 Ml Pen) 35 unit SUBQ QPM [facility] Last Admin: 03/27/21 21:27 Dose: 35 unit Metoprolol Succinate (Metoprolol Succinate 25 Mg Tablet) 12.5 mg PO BID [facility] Last Admin: 03/28/21 09:57 Dose: 12.5 mg Mineral Oil (Min Oil/Dimethicon/Coconut Oil 92 Gm Tube) 1 applic TOP PRN PRN PRN Reason: Skin Care Last Admin: 03/27/21 17:00 Dose: 1 applic Multivitamins/Minerals (Multivitamin W/Minerals Tablet) 1 tab PO DAILYWM [facility] Last Admin: 03/28/21 08:07 Dose: 1 tab Ondansetron HCl (Ondansetron Odt 4 Mg Tablet) 4 mg TL Q6HR PRN PRN Reason: Nausea / Vomiting Ondansetron HCl (Ondansetron 4 Mg/2 Ml Vial) 4 mg IVP Q6HR PRN PRN Reason: Nausea / Vomiting Pantoprazole Sodium (Pantoprazole 40 Mg Tablet) 40 mg PO QDAC [facility] Last Admin: 03/28/21 06:37 Dose: 40 mg Polyethylene Glycol (Polyethylene Glycol 3350 17 Gm Packet) 17 gm PO DAILY [facility] Last Admin: 03/28/21 09:57 Dose: 17 gm Prednisone (Prednisone 20 Mg Tablet) 40 mg PO DAILYWM [facility] Stop: 03/30/21 07:59 Last Admin: 03/28/21 08:07 Dose: 40 mg Risperidone (Risperidone 1 Mg Tablet) 1 mg PO QPM [facility] Last Admin: 03/27/21 21:24 Dose: 1 mg Senna (Senna 8.6 Mg Tablet) 8.6 - 17.2 mg PO DAILY PRN PRN Reason: Constipation Sodium Chloride (Sodium Chloride Flush 0.9% 10 Ml Syringe) 10 ml IVP PRN PRN PRN Reason: NEEDED PER PROVIDER ORDERS Last Admin: 03/25/21 22:29 Dose: 10 ml Sodium Chloride (Sodium Chloride Flush 0.9% 10 Ml Syringe) 10 ml IVP 0100,0900,1700 [facility] Last Admin: 03/28/21 09:59 Dose: 10 ml Aspirin EC [Ecotrin] 81 mg PO DAILY 03/22/21 Atorvastatin Calcium 40 mg PO QPM 03/22/21 Famotidine [Pepcid] 20 mg PO BID 03/22/21 Furosemide [Lasix] 20 mg PO SUTUTHSA@0900 03/22/21 Furosemide [Lasix] 40 mg PO MOWEFR@0900 03/22/21 Gabapentin [Neurontin] 300 mg PO HS 03/22/21 Glimepiride [Amaryl] 4 mg PO QDBREAKFAST 03/22/21 Metoprolol Succinate [Toprol Xl] 12.5 mg PO BID 03/22/21 Nitroglycerin [Nitrostat] 0.4 mg SL Q5MIN PRN 03/22/21 Risperidone [Risperdal] 1 mg PO QPM 03/22/21 Objective - Vital Signs/Intake & Output Reviewed Vital Signs: Yes Vital Signs: Vital Signs x48h Temp Pulse Pulse Pulse Resp BP Pulse Ox 03/28/21 08:39 112 H 24 03/28/21 07:42 36.6 C 83 26 H 138/63 H 93 03/28/21 05:11 36.3 C L 73 24 142/59 H 93 Intake & Output: Intake & Output 03/25/21 03/26/21 03/27/21 03/28/21 23:59 23:59 23:59 23:59 Intake Total 650 2420 3070 640 Output Total 1550 1350 2550 3000 Balance -900 1070 520 -2360 - Objective General Appearance: positive: No acute distress, Alert Eyes Bilateral: positive: Normal inspection, Conjunctivae nml ENT: positive: ENT inspection nml, Other (Nasal cannul in place.) Neck: positive: Nml inspection Respiratory: positive: No respiratory distress, Wheezes (Expiratory), Rhonchi, Other (Tachypnic but not in distres.) Cardiovascular: positive: Regular rate & rhythm. negative: Tachycardia Skin: positive: Warm, Dry Extremities: positive: No pedal edema Neurologic/Psychiatric: positive: Other (No focal deficits.). negative: Disoriented to person, Disoriented to place - Lab Results Fish Bones: 03/28/21 04:33 03/28/21 04:33 Other Labs: Lab Results x24hrs 03/28/21 03/28/21 03/27/21 Range/Units 04:33 04:33 16:49 WBC 7.6 (4.8-10.8) x10^3/uL RBC 3.33 L (4.20-5.40) 10^6/uL Hgb 9.3 L 9.2 L (12.0-16.0) g/dL Hct 28.5 L 27.7 L (37.0-47.0) % MCV 85.6 (81.0-99.0) fL MCH 27.9 (27.0-31.0) pg MCHC 32.6 (32.0-36.0) g/dL RDW 16.8 H (12.0-15.0) % Plt Count 239 (130-450) 10^3/uL MPV 11.6 H (7.9-10.8) fL Neut # (Auto) 6.3 (1.5-6.6) 10^3/uL Lymph # (Auto) 0.6 L (1.5-3.5) 10^3/uL Irwin # (Auto) 0.6 (0.0-1.0) 10^3/uL Eos # (Auto) 0.0 (0.0-0.7) 10^3/uL Baso # (Auto) 0.0 (0.0-0.1) 10^3/uL Absolute Nucleated RBC 0.06 x10^3/uL Nucleated RBC % 0.8 /100WBC Sodium 140 (135-145) mmol/L Potassium 3.8 (3.5-5.0) mmol/L Chloride 93 L (101-111) mmol/L Carbon Dioxide 37 H (21-32) mmol/L Anion Gap 10.0 (6-13) BUN 24 H (6-20) mg/dL Creatinine 0.8 (0.4-1.0) mg/dL Estimated GFR (MDRD) 69 L (>89) Glucose 203 H (70-100) mg/dL Calcium 8.4 L (8.5-10.3) mg/dL Urine Color Urine Clarity (CLEAR) Urine pH (5.0-7.5) PH Ur Specific Clune (1.002-1.030) Urine Protein (NEGATIVE) mg/dL Urine Glucose (UA) (NEGATIVE) mg/dL Urine Ketones (NEGATIVE) mg/dL Urine Occult Blood (NEGATIVE) Urine Nitrite (NEGATIVE) Urine Bilirubin (NEGATIVE) Urine Urobilinogen (NORMAL) E.U./dL Ur Leukocyte Esterase (NEGATIVE) Urine RBC (0-5) /HPF Urine WBC (0-5) /HPF Ur Squamous Epith Cells (<= Few) Urine Bacteria (None Seen) /HPF Urine Culture Comments Blood Type Antibody Screen Crossmatch IS Only 03/27/21 03/27/21 Range/Units 07:45 02:10 WBC (4.8-10.8) x10^3/uL RBC (4.20-5.40) 10^6/uL Hgb (12.0-16.0) g/dL Hct (37.0-47.0) % MCV (81.0-99.0) fL MCH (27.0-31.0) pg MCHC (32.0-36.0) g/dL RDW (12.0-15.0) % Plt Count (130-450) 10^3/uL MPV (7.9-10.8) fL Neut # (Auto) (1.5-6.6) 10^3/uL Lymph # (Auto) (1.5-3.5) 10^3/uL Irwin # (Auto) (0.0-1.0) 10^3/uL Eos # (Auto) (0.0-0.7) 10^3/uL Baso # (Auto) (0.0-0.1) 10^3/uL Absolute Nucleated RBC x10^3/uL Nucleated RBC % /100WBC Sodium (135-145) mmol/L Potassium (3.5-5.0) mmol/L Chloride (101-111) mmol/L Carbon Dioxide (21-32) mmol/L Anion Gap (6-13) BUN (6-20) mg/dL Creatinine (0.4-1.0) mg/dL Estimated GFR (MDRD) (>89) Glucose (70-100) mg/dL Calcium (8.5-10.3) mg/dL Urine Color YELLOW Urine Clarity CLEAR (CLEAR) Urine pH 6.0 (5.0-7.5) PH Ur Specific Clune <=1.005 (1.002-1.030) Urine Protein NEGATIVE (NEGATIVE) mg/dL Urine Glucose (UA) >=1000 H (NEGATIVE) mg/dL Urine Ketones NEGATIVE (NEGATIVE) mg/dL Urine Occult Blood NEGATIVE (NEGATIVE) Urine Nitrite NEGATIVE (NEGATIVE) Urine Bilirubin NEGATIVE (NEGATIVE) Urine Urobilinogen 0.2 (NORMAL) (NORMAL) E.U./dL Ur Leukocyte Esterase NEGATIVE (NEGATIVE) Urine RBC 0-5 (0-5) /HPF Urine WBC 0-3 (0-5) /HPF Ur Squamous Epith Cells RARE Squamous (<= Few) Urine Bacteria Rare (None Seen) /HPF Urine Culture Comments NOT INDICATED Blood Type O POSITIVE Antibody Screen NEGATIVE Crossmatch IS Only See Detail Assessment/Plan - Problem List (1) COPD (chronic obstructive pulmonary disease) Impression: She is still in exacerbation and is still tachypneic with wheezing and rhonchi. This is likely secondary to COVID-19 infection. She remains on her baseline oxygen requirements of 2 to 3 L. We have her on oral prednisone with today being day three. We also have her on ceftriaxone for the COPD exacerbation. I will increase her nebulizers to DuoNeb every 4 hours with albuterol every 4 hours as needed. We will repeat a chest x-ray today. She is not yet ready to be discharged but I hope she will show improvement over next 24 hours for consideration of discharge tomorrow. Qualifiers: COPD type: COPD with acute exacerbation Qualified Code(s): J44.1 - Chronic obstructive pulmonary disease with (acute) exacerbation (2) Chest pain Impression: Suspect this may be related to the COPD exacerbation but given her history of coronary artery disease, we will check an EKG, troponin and monitor on telemetry. We are continuing her home aspirin, beta-amira, Lipitor. EKG showed sinus rhythm with right bundle branch block. No prior EKG to compare to. Troponins were flat at 60 twice which I suspect is demand ischemia due to the COPD exacerbation. We will continue management as mentioned above. We will order an echo for the morning. (3) Delirium Impression: This appears to be improving. She is alert and oriented to self and location. It has helped we have let her daughter come and visit her. She was speaking to me today as long as there was female staff present in the room. Work-up has been unremarkable but suspect is related to her ongoing COPD exacerbation as well as her prolonged hospitalization. CT of the head was not obtained due to no focal deficits. She had MRI last week at [facility]. We will continue to avoid sedatives and continue her home risperidone. We will continue to allow her daughter to visit on a daily basis. (4) Iron deficiency anemia Impression: She received 2 units of packed red blood cells yesterday as her hemoglobin has been slowly decreasing over this hospitalization. This morning it is stable after 2 units of packed red blood cell at 9.3. Her stool is heme positive but given her hemoglobin has been relatively stable, and EGD was not pursued especially given the Covid infection and her COPD exacerbation. General surgery felt that it was not necessary given her comorbidities. We will continue to check hemoglobin on a daily basis continue oral iron. Qualifiers: Iron deficiency anemia type: unspecified iron deficiency Qualified Code(s): D50.9 - Iron deficiency anemia, unspecified (5) Heme positive stool Impression: Her stool is heme positive and she received 2 units of packed red blood cell yesterday. Her hemoglobin has been relatively stable though without evidence of significant bleeding. No endoscopy was pursued due to her respiratory status and her comorbidities. General surgery recommended following up in outpatient basis with her thermocouple tester at [facility]. (6) COVID-19 Impression: This likely triggered the COPD exacerbation. She is not hypoxic compared to her baseline. She is on prednisone and nebulizers for the COPD exacerbation. Continue contact precautions. (7) Chronic respiratory failure with hypoxia Impression: This is stable. She is on her baseline 2 to 3 L of oxygen. (8) Generalized weakness Impression: She continues work with PT on a daily basis. She will need a SNF on discharge and she has been tentatively accepted at a SNF in [place]. We will look to discharge her to the SNF once she is medically stable. (9) Type 2 diabetes mellitus treated without insulin Impression: She was hyperglycemic yesterday with blood sugars as high as 400. This has been exacerbated by her Solu-Medrol which we will switch to oral prednisone now. I increased her Lantus yesterday evening she will see how her blood glucose test today but we will increase the NovoLog with meals to 6 units. Continue sliding scale. (10) History of coronary artery disease Impression: Stable. We are continuing her home metoprolol and Lipitor. We have also resumed aspirin. (11) Bipolar 1 disorder Impression: Continue risperidone.
[2021-03-28] MEDS ORDERED: BENZONATATE 100 MG CAPSULE PO PRN (11:54)
--- NOTE | 2021-03-28 13:00 | XRAY Report ---
PROCEDURE: Chest 1 View X-Ray INDICATIONS: COPD. Wheezing. Chest pain. TECHNIQUE: One view of the chest was acquired. COMPARISON: March 22, 2021 FINDINGS: SUPPORT DEVICES: None. LUNGS/PLEURA: Interstitial prominence, suggesting pulmonary edema. No pleural effusion or pneumothora x. MEDIASTINUM: The cardiomediastinal silhouette is within normal limits. BONES/SOFT TISSUES: No acute abnormality. Right rotator cuff calcification, compatible with tendinopa thy. IMPRESSION: 1.Interstitial prominence, suggesting pulmonary edema. Reviewed by: Amor Carlson MD on 03/28/2021 12:58 PM [facility] Approved by: Amor Carlson MD on 03/28/2021 12:58 PM [facility] Station ID: [id number]
[2021-03-28] MEDS: IPRATROPIUM/ALBUTEROL 3 ML NEB INH SCH ×4 (13:24→23:54)
[2021-03-28] MEDS: ACETAMINOPHEN 325 MG TABLET PO PRN (16:55)
[2021-03-28] MEDS: ATORVASTATIN 40 MG TABLET PO SCH (20:37)
[2021-03-28] MEDS: risperiDONE 1 MG TABLET PO SCH (20:38)
[2021-03-28] MEDS: GABAPENTIN 300 MG CAPSULE PO SCH (20:38)
[2021-03-28] MEDS: INSULIN GLARGINE 300 UNIT/3 ML PEN SUBQ SCH (20:38)
[2021-03-29] MEDS: IPRATROPIUM/ALBUTEROL 3 ML NEB INH SCH ×2 (03:50→07:13)
[2021-03-29] MEDS: SODIUM CHLORIDE FLUSH 0.9% 10 ML SYRINGE IVP SCH ×2 (06:57→09:16)
[2021-03-29] MEDS: PANTOPRAZOLE 40 MG TABLET PO SCH (06:57)
[2021-03-29] MEDS: NYSTATIN POWDER 15 GM TOP SCH ×2 (06:57→09:22)
[2021-03-29 08:17] VITALS: BP 119/43
--- NOTE | 2021-03-29 08:31 | Discharge Plan ---
"Discharge Plan for SNF / [facility] - Discharge Plan And Transition Orders Problem Reviewed?: Yes Disposition: 03 SNF DC/Xfer Condition: Stable Allergies and Adverse Reactions: Allergies Allergy/AdvReac Type Severity Reaction Status Date / Time No Known Drug Allergies Allergy Verified 03/22/21 08:16 Health Concerns: The patient was admitted with weakness and shortness of breath. She was found to have marked anemia and heme positive stool. She received blood transfusion and management of a COPD exacerbation from [facility]. The sap basis consultant felt that an upper endoscopy was not indicated since her hemoglobin stabilized and she had many comorbidities including the positive Covid status. She has a GI provider at [facility]. Plan of Treatment: Continue with management of her COPD requiring oxygen, diabetes mellitus, CAD with stents, bipolar disorder, and iron deficiency anemia. She is being discharged to SNF for PT rehab. Care Goals: Improvement in symptoms and stabilization are the goals. She is a DNR but would accept intubation and ventilator management. Assessment: Instructions being given for the SNF. - SNF / [facility] Transition Orders Admit to (Facility): [facility] Under the care of (Name): Dr Amanda Allen Discharge Diagnosis: (1) COPD exacerbation Improved (2) COVID-19 This likely triggered the COPD exacerbation. (3) Chronic respiratory failure with hypoxia She is on her baseline 2 to 3 L of oxygen per n.c. (4) Delirium Improved, suspect it was related to needing steroids for her COPD exacerbation as well as her prolonged hospitalizations (5) Iron deficiency anemia Stable H/H after she received 2 units of packed red blood cells and she is on oral Iron suppl. (6) Heme positive stool No endoscopy was done due to her respiratory status and her comorbidities. General clinical science consultant recommended following up in outpatient basis with her [employer]wich [employer]rier at [facility]. (7) Generalized weakness She continues to work with PT on a daily basis, and being discharged to SNF in [place]. (8) Type 2 diabetes mellitus She was only on Amaryl before hospitalization. Hyperglycemia here (with glu >400) was exacerbated by being on Solu-Medrol then oral prednisone. She is on new subq Insulin now. (9) History of coronary artery disease Stable (10) Bipolar 1 disorder Stable on Risperidone. Medicare Certification Statement: I certify that [facility] alf care is medically necessary on a continuing basis for any of the conditions for which she/he is receiving care during hospitalization. Notify PCP of admission and forward orders to primary provider for signature. Weight on admission and: Weekly Call PCP immediately if weight increases by: 5 kg Other Notification Orders: Call PCP immediately if patient develops dyspnea, chest pain/tightness or edema. House Bowel Program: Yes Additional Bowel Program Orders: If no BM after 2 days, nurse may give M.O.M. 30ml PO PRN and/or ducolax Supp 1 CT and/or TRINA 250mg P.O., and/or senna 1-2 tabs PO. On day 3 nurse may give repeat above order until residents constipation is resolved. Annual Influenza Vaccine (between Oct 06 and May 05): Yes Two-step PPD per [facility] [id number] or approved exception documents: Yes Oxygen Orders: 2-3L continuously, per nasal cannula Medication Orders: PLEASE REFER TO THE DISCHARGE MEDICATION LIST. Insulin Orders?: Yes - Medications New Prescriptions: Ipratropium/Albuterol [Duoneb] 3 ml INH Q4HR #120 neb predniSONE [Deltasone] 40 mg PO DAILYWM #60 tablet Ferrous Sulfate [Feosol] 325 mg PO DAILYWM #30 tablet Insulin Glargine [Lantus Solostar] 30 unit SUBQ QPM #1 pe guaiFENesin [Mucinex] 600 mg PO BID #60 tablet Insulin Aspart [NovoLOG] 6 unit SUBQ TIDWM #1 pe Insulin Aspart [NovoLOG] 3 - 11 unit SUBQ 0800,1200,1700,2100 #1 pe Montelukast [Singulair] 10 mg PO QPM #30 tablet Benzonatate [Tessalon] 100 mg PO TID PRN #30 cap PRN Reason: Cough - Diet Type: Geriatric Texture: Regular Liquids: Thin May have monthly special meal: Yes - Therapies | Activity Therapy: Evaluation | Treat if indicated: PT, OT Rehabilitation Potential: Maximize functional status Activity: Activity as Tolerated Weight Bearing: Full Weight Assistance Devices: Walker Follow Up: See PCP and GI after DCh from SNF. Insulin Orders - SNF Basal | Correction | Custom Orders: Diagnosis: Diabetes Initiate hypo and hyperglycemia protocols for BG <70 and BG >375. May check BG PRN for signs/symptoms of dysglycemia. Frequency of BG checks: AC/HS Basal Insulin: [X] Lantus 100 units / ml inject subq as follows: 35 U subq every pm Correction Insulin: - Select the type of insulin below Novolog 100 units /ml insulin inject subq per orders indicate below [] LOW DOSE [] MODERATE DOSE [] MODERATE/HIGH DOSE [X] HIGH DOSE GB UNITS GB UNITS GB UNITS GB UNITS 61-140 0 UNITS 61-140 0 UNITS 61-140 0 UNITS 61-140 0 UNITS 141-175 1 UNITS 141-175 1 UNITS 141-175 2 UNITS 141-175 3 UNITS 176-225 2 UNITS 176-225 3 UNITS 176-225 4 UNITS 176-225 5 UNITS 226-275 3 UNITS 226-275 5 UNITS 226-275 6 UNITS 226-275 7 UNITS 276-325 4 UNITS 276-325 7 UNITS 276-325 8 UNITS 276-325 9 UNITS 326-375 5 UNITS 326-375 9 UNITS 326-375 10 UNITS 326-375 11 UNITS >375 CONTACT MD >375 CONTACT MD >375 CONTACT MD >375 CONTACT MD Custom Dosing: Novolog 100 units/ml Insulin inject subq as follows: 6 U sq tid with meals"
[2021-03-29] MEDS: polyethylene glycoL 3350 17 GM PACKET PO SCH (09:10)
[2021-03-29] MEDS: ASPIRIN CHEW 81 MG TABLET PO SCH (09:11)
[2021-03-29] MEDS: guaiFENesin 600 MG TABLET PO SCH (09:11)
[2021-03-29] MEDS: FUROSEMIDE 20 MG TABLET PO SCH (09:11)
[2021-03-29] MEDS: predniSONE 20 MG TABLET PO SCH (09:12)
[2021-03-29] MEDS: METOPROLOL SUCCINATE 25 MG TABLET PO SCH (09:12)
[2021-03-29] MEDS: FERROUS SULFATE 325 MG TABLET PO SCH (09:12)
[2021-03-29] MEDS: MULTIVITAMIN W/MINERALS TABLET PO SCH (09:14)
[2021-03-29] MEDS: cefTRIAXone 1 GM in SODIUM CHLORIDE 0.9% MINIBAG 100 ML IV SCH (09:16)
--- NOTE | 2021-03-29 09:17 | DISCHARGE SUMMARY ---
Discharge Summary Admit Date: 03/22/21 Discharge Date: 03/29/21 Discharging Provider: Dr Amy Mccauley Primary Care Provider: Dr Saul Fitzgerald Code Status: Do Not Attempt Resuscitation Condition at Discharge: Stable Discharge Disposition: SNF DC/Xfer Discharge Facility Name: [facility] - DIAGNOSES Discharge Diagnoses with Status of Each Condition: (1) COPD exacerbation Improved (2) COVID-19 This likely triggered the COPD exacerbation. (3) Chronic respiratory failure with hypoxia She is on her baseline 2 to 3 L of oxygen per n.c. (4) Delirium Improved, suspect it was related to needing steroids for her COPD exacerbation as well as her prolonged hospitalizations (5) Iron deficiency anemia Stable H/H after she received 2 units of packed red blood cells and she is on oral Iron suppl. (6) Heme positive stool No endoscopy was done due to her respiratory status and her comorbidities. General cloud consultant recommended following up in outpatient basis with her Director Semiconductor at [facility]. (7) Generalized weakness She continues to work with PT on a daily basis, and being discharged to SNF in [place]. (8) Type 2 diabetes mellitus She was only on Amaryl before hospitalization. Hyperglycemia here (with glu >400) was exacerbated by being on Solu-Medrol then oral prednisone. She is on new subq Insulin now. (9) History of coronary artery disease Stable (10) Bipolar 1 disorder Stable on Risperidone. - HPI History of Present Illness: From the admission H&P of Dr Heena Ortiz: This 80 y/o WF was just discharged from [facility] yesterday. Patient is a morbidly obese female who has coronary artery disease (3 stents in 2016), COPD (on 2 to 3 L of home oxygen), type II azn-vhnctwj-jfwpzezfc diabetes, history of NSTEMI, hypertension, bipolar disorder that presented to the emergency room at [facility] on March 16 with "sudden" weakness for 2 days. been getting increasingly weak for 48 hours. She uses a walker at home but for the 2 days prior to admission was not able to do so. Speech was slightly slurred per her son and the patient complained of left arm numbness. She was having increasing cough, increasing dyspnea on exertion over her chronic dyspnea on exertion. Cough was productive of yellow phlegm. She was ostensibly treated as a possible TIA. A CT of the head was negative. She does have cerebral volume loss and small vessel changes. Lactic acid was 1. Blood cultures x2 were done. Glucose was 183. She was positive for COVID-19. She is not vaccinated because she does not believe in the vaccine. But she did not have any manifestation of Covid pneumonia on chest x-ray. CT and MRI did not show any stroke. Echocardiogram with bubble was unremarkable. Ejection fraction was 55 to 60%. No valvular heart disease. Internal carotid stenosis was 50 to 69% with scattered plaque. Nothing significant. She requested discharge to home. From the Discharge Summary from [facility], physical therapy and Occupational Therapy did recommend that she go [place] [facility] [place]. They said that it would be few days before she can be placed to in [place] facility due to Covid (+) status. Daughter feels that there is not a clear communication. Several times she asked if mom was able to transfer. Physical therapy and Social Work assured her that mom was able to stand to transfer. With that in mind, daughter felt that she could go home as opposed to go to a shelter. They were barely able to get her into her car. When she got home they were barely able to get her into the house. When she was home she has been in bed and has not done much else. She has a poor appetite. They managed to get one protein shake down her between yesterday and today. But she cannot get out of bed. She cannot sit this transfer. They feel that she is not able to stay at home safely. Daughter is very concerned that mom is anemic. She recalls an episode in 2018 where mom presented with these exact same symptoms [facility]. Hemoglobin then was 6.9. When she was transfused all of her symptoms "went away" and she was able to go home. She refused endoscopy at that time. She repeatedly asked [facility] if mom was anemic. She was assured that mom was not. So when we have explained to her today that mom is anemic she is very annoyed. Other problems that she had while there was COPD. They had a low suspicion for pneumonia even with Covid positive status. She was treated with duo nebs, oxygen, and O2 sats were maintained between 88 to 92%. 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 To be followed up in the outpatient basis. She had acute kidney injury with a BUN of 18 and a creatinine of 1.03. Baseline usually 0.75. She was felt to be dehydrated and she responded to normal saline 75 mils an hour. Her chronic problems of hypertension, bipolar disorder, coronary artery disease and diabetic neuropathy were all treated with her usual home meds. Since discharge to home she has not done well. They cannot take care of her with this weakness. Maybe she has more cough and phlegm but not a severe change. So they called EMS and EMS found her with an O2 sat of 89% on room air. On 3 L nasal cannula resulted in 96%. Temperature was 37.1. Heart rate 102. Blood pressure 118/62. Respirations 28. She was a morbidly obese female with no gross focal neurological deficits. She was alert, "oriented" on exam even though she is described as confused, disoriented by family. No focal motor deficits. Hemoglobin was 7.8. The emergency room provider was unclear if this was a new problem or an old problem. He waited 5 hours to get records from [facility]. A rectal exam showed heme positive stool. Because he could not verify if this was a new drop in hemoglobin or chronic hemoglobin, he postulated that she may be weak because of anemia. He repeated her hemoglobin and it was 8.2. He spoke to general surgery who said they would be willing to do an EGD during this stay if she was having an acute GI bleed. Chest x-ray has mild diffuse reticular nodular pulmonary opacity. Potassium was 3.4. BUN 22. Creatinine 0.7. White cell count is low at 4.3. She continues to be Covid positive. We then obtained records from [facility]. Her hemoglobin there was 8.6 and 8.9 for the entirety of her stay. As such her hemoglobin is stable and she most likely will not need an EGD acutely. She has generalized weakness and mild Covid pneumonia plus her chronic medical conditions. - HOSPITAL COURSE Hospital Course: (1) COPD exacerbation She was treated with IV Solu-Medrol, Tessalon Perles, empiric ceftriaxone and Zithromax, albuterol nebulizer treatments every 4 hours and supplemental O2. Her tachypnea slowly improved. She was discharged on prednisome, Mucinex and Albuterol inhaler. (2) COVID-19 This likely triggered the COPD exacerbation. She was kept in isolation for 5 days. She had a mild atypical pneumonia. She refused Remdesivir at [facility]. Her RN asked her daughter and family requested no Remdesivir treatment here. She did receive Decadron. (3) Chronic respiratory failure with hypoxia She required a maximum setting of 5L per nasal cannula while here. At discharge, she was on her baseline 2 to 3 L of oxygen per n.c. (4) Delirium Her ammonia level was normal. No brain imaging was done as she had no focal fin dings and a brain MRI had been done a week previously (at [facility]). Her mental status improved. We suspected it was related to needing steroids for her COPD exacerbation as well as confusion from her prolonged hospitalizations. The daughter was allowed to visit which helped her condition. (5) Iron deficiency anemia After admission, her Hgb dropped to 7.5 for many days. On 03/27/21, Hgb was 6.7 and she received 2 units of PRBCs and she was put on oral Iron suppl. Hgb then stabilized at 9.2. 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 She had polypectomy in 2018 and ERCP and surveillance in 2019. She has history of pancreatic stent and stone debris. She has history of reactive granulation tissue at biliary and pancreatic sphincterotomy site). General cloud consultant recommended following up in outpatient basis with her Director Semiconductor at [facility]. (7) Generalized weakness She started to work with PT on a daily basis, and was discharged to SNF at [facility]. (8) Type 2 diabetes mellitus She was only on Amaryl before hospitalization. Her marked hyperglycemia here (with glu >400) was exacerbated by being on Decadron, Solu-Medrol then oral Prednisone. She was discharged to SNF off Amaryl and on new subq Insulin: Lantus 30 U sq qpm, Novalog Aspart Insulin 6 U tid with meals and sliding scale coverage. (9) History of coronary artery disease Stable, her home meds were continued. (10) Bipolar 1 disorder Stable on her home dose of Risperidone. - ALLERGIES Allergies/Adverse Reactions: Allergies Allergy/AdvReac Type Severity Reaction Status Date / Time No Known Drug Allergies Allergy Verified 03/22/21 08:16 - MEDICATIONS Home Medications: Ambulatory Orders Medication Instructions Recorded Confirmed Aspirin EC [Ecotrin] 81 mg PO DAILY 03/22/21 03/22/21 Atorvastatin Calcium 40 mg PO QPM 03/22/21 03/22/21 Famotidine [Pepcid] 20 mg PO BID 03/22/21 03/22/21 Furosemide [Lasix] 20 mg PO SUTUTHSA@0900 03/22/21 03/22/21 Furosemide [Lasix] 40 mg PO MOWEFR@0900 03/22/21 03/22/21 Gabapentin [Neurontin] 300 mg PO HS 03/22/21 03/22/21 Metoprolol Succinate [Toprol Xl] 12.5 mg PO BID 03/22/21 03/22/21 Nitroglycerin [Nitrostat] 0.4 mg SL Q5MIN PRN 03/22/21 03/22/21 Risperidone [Risperdal] 1 mg PO QPM 03/22/21 03/22/21 Benzonatate [Tessalon] 100 mg PO TID PRN #30 cap 03/29/21 Ferrous Sulfate [Feosol] 325 mg PO DAILYWM #30 tablet 03/29/21 Insulin Aspart [NovoLOG] 3 - 11 unit SUBQ 03/29/21 0800,1200,1700,2100 #1 pe Insulin Aspart [NovoLOG] 6 unit SUBQ TIDWM #1 pe 03/29/21 Insulin Glargine [Lantus Solostar] 30 unit SUBQ QPM #1 pe 03/29/21 Ipratropium/Albuterol [Duoneb] 3 ml INH Q4HR #120 neb 03/29/21 Montelukast [Singulair] 10 mg PO QPM #30 tablet 03/29/21 guaiFENesin [Mucinex] 600 mg PO BID #60 tablet 03/29/21 predniSONE [Deltasone] 40 mg PO DAILYWM #60 tablet 03/29/21 - PHYSICAL EXAM AT DISCHARGE General Appearance: positive: No acute distress, Alert, Other (Obese) Eyes Bilateral: positive: Normal inspection, PERRL, EOMI ENT: positive: ENT inspection nml, No signs of dehydration Neck: positive: Other (Obese) Respiratory: positive: No respiratory distress, Breath sounds nml Cardiovascular: positive: Regular rate & rhythm (Distant heart sounds due to obesity and large breasts) Abdomen: positive: Non-tender, Other (Obese with a pannus) Skin: positive: Warm, Dry, Pallor Extremities: positive: Other (Trace pretibial edema, 1+ ankle edema) Neurologic/Psychiatric: positive: Oriented x3 (Non-focal. Poor memory.) - LABS Result Diagrams: 03/28/21 04:33 03/28/21 04:33 - DIAGNOSTIC IMAGING Diagnostic Imaging Results: Final report reviewed - FOLLOW UP Follow Up: Advised to see her PCP after discharge from the SNF. - TIME SPENT Time Spent in Discharge (Minutes): 60
[2021-03-29] MEDS: INSULIN ASPART 300 UNIT/3 ML PEN SUBQ SCH ×2 (09:21)
== END 2021-03-29 10:16 | DRG 177 ==
LOC: EDUNIT# → ED 07:45 → MS2 18:14 → OBSVTOIN 03-25 10:12
PROVIDERS: ADMIT Specialist; ATTEND Internal Medicine
PROC: 30233N1 Transfusion of Nonautologous Red Blood Cells into Peripheral Vein, Percutaneous Approach (ICD-10-PCS; principal; 2021-03-27)
DX: U07.1 COVID-19 (principal); J12.82 Pneumonia due to coronavirus disease 2019; J96.11 Chronic respiratory failure with hypoxia; K92.1 Melena; N17.9 Acute kidney failure, unspecified; I24.8 Other forms of acute ischemic heart disease; E11.9 Type 2 diabetes mellitus without complications; Z99.81 Dependence on supplemental oxygen; Z87.891 Personal history of nicotine dependence; J43.9 Emphysema, unspecified; Z79.84 Long term (current) use of oral hypoglycemic drugs; D50.9 Iron deficiency anemia, unspecified; F31.9 Bipolar disorder, unspecified; F03.90 Unspecified dementia, unspecified severity, without behavioral disturbance, psychotic disturbance, mood disturbance, and anxiety; Z66 Do not resuscitate; E87.6 Hypokalemia; E86.0 Dehydration; I25.10 Atherosclerotic heart disease of native coronary artery without angina pectoris; Z95.5 Presence of coronary angioplasty implant and graft; E66.01 Morbid (severe) obesity due to excess calories; Z68.34 Body mass index [BMI] 34.0-34.9, adult; I10 Essential (primary) hypertension; R53.1 Weakness; R41.0 Disorientation, unspecified; I25.2 Old myocardial infarction; Z86.73 Personal history of transient ischemic attack (TIA), and cerebral infarction without residual deficits; M17.12 Unilateral primary osteoarthritis, left knee; E11.42 Type 2 diabetes mellitus with diabetic polyneuropathy; K21.9 Gastro-esophageal reflux disease without esophagitis; E78.00 Pure hypercholesterolemia, unspecified; R32 Unspecified urinary incontinence; E11.22 Type 2 diabetes mellitus with diabetic chronic kidney disease; I12.9 Hypertensive chronic kidney disease with stage 1 through stage 4 chronic kidney disease, or unspecified chronic kidney disease; N18.9 Chronic kidney disease, unspecified
CPT/HCPCS: 36415; 36600; 71045; 80048; 81001; 82140; 82272; 82306; 82607; 82803; 84443; 84484; 85014; 85018; 85025; 85027; 85610; 86850; 86900; 86901; 86920; 87631; 93005; 94640; 94664; 96374; 96375; 97110; 97116; 97162; 97165; 97530; 99285; A6250; A9270; G0378; J1815; J7512; P9016; 0202U; 83880; 87086

== ENCOUNTER 2021-05-17 08:00 | Outpatient (CLI) | payer MEDICARE ==
[2021-05-17 18:43] LABS: BASOPHILS # (AUTO) 0.1 10^3/uL (0.0-0.1); BASOPHILS % (AUTO) 0.9 %; EOSINOPHILS # (AUTO) 0.2 10^3/uL (0.0-0.7); EOSINOPHILS % (AUTO) 2.7 %; HCT - HEMATOCRIT 35.1 % (37.0-47.0); LYMPHOCYTES # (AUTO) 2.1 10^3/uL (1.5-3.5); LYMPHOCYTES % (AUTO) 37.8 %; MEAN CORPUSCULAR HEMOGLOBIN 28.6 pg (27.0-31.0); MEAN CORPUSCULAR HGB CONC 31.3 g/dL (32.0-36.0); MEAN CORPUSCULAR VOLUME 91.4 fL (81.0-99.0); MONOCYTES # (AUTO) 0.6 10^3/uL (0.0-1.0); MONOCYTES % (AUTO) 11.1 %; NEUTROPHILS # (AUTO) 2.6 10^3/uL (1.5-6.6); NEUTROPHILS % (AUTO) 47.3 %; PLT - PLATELET COUNT 192 10^3/uL (130-450); RED BLOOD COUNT 3.84 10^6/uL (4.20-5.40); RED CELL DISTRIBUTION WIDTH 14.6 % (12.0-15.0); WHITE BLOOD COUNT 5.5 x10^3/uL (4.8-10.8)
[2021-05-17 19:26] LABS: % IRON SATURATION 18 % (20-50); ALBUMIN 3.2 g/dL (3.2-5.5); ALBUMIN/GLOBULIN RATIO 1.1 (1.0-2.2); ALKALINE PHOSPHATASE 60 IU/L (42-121); ALT ALANINE AMINOTRANSFERASE 14 IU/L (10-60); AST ASPARTATE AMINOTRANSFERASE 19 IU/L (10-42); BILIRUBIN,TOTAL 0.9 mg/dL (0.2-1.0); BUN - BLOOD UREA NITROGEN 12 mg/dL (6-20); CALCIUM 8.9 mg/dL (8.5-10.3); CARBON DIOXIDE - CO2 32 mmol/L (21-32); CHLORIDE 96 mmol/L (101-111); CHOL/HDL RATIO 2.9 (<4.4); CHOLESTEROL 100 mg/dL; CREATININE 0.9 mg/dL (0.4-1.0); GFR - MDRD 60 (>89); GLUCOSE 102 mg/dL (70-100); HDL CHOLESTEROL 35 mg/dL; IRON 80 ug/dL (28-170); LDL CHOLESTEROL,CALCULATED 43 mg/dL; LDL/HDL RATIO 1.2 (<4.4); POTASSIUM 3.9 mmol/L (3.5-5.0); SODIUM 138 mmol/L (135-145); TOTAL IRON BINDING CAPACITY 451 ug/dL (250-450); TOTAL PROTEIN 6.2 g/dL (6.7-8.2); TRANSFERRIN 322 mg/dL (192-382); TRIGLYCERIDES 110 mg/dL; VLDL CHOLESTEROL 22 mg/dL
[2021-05-17 19:38] LABS: THYROID STIMULATING HORMONE 1.09 uIU/mL (0.34-5.60)
[2021-05-17 19:40] LABS: FREE T4 (FREE THYROXINE) 0.97 ng/dL (0.58-1.64)
[2021-05-17 19:44] LABS: FERRITIN 10.3 ng/mL (11.0-306.8)
[2021-05-17 20:35] LABS: ESTIMATED AVERAGE GLUCOSE 97 mg/dL (70-100)
== END 2021-05-17 23:59 | disposition home or self-care (01) ==
LOC: LAB.R 08:00
PROVIDERS: ATTEND Nurse Practitioner
DX: I10 Essential (primary) hypertension (principal); E11.40 Type 2 diabetes mellitus with diabetic neuropathy, unspecified; R53.83 Other fatigue; D50.9 Iron deficiency anemia, unspecified; J43.9 Emphysema, unspecified; J96.11 Chronic respiratory failure with hypoxia; U07.1 COVID-19
CPT/HCPCS: 80053; 80061; 82607; 82728; 83036; 83540; 83721; 83880; 84439; 84443; 84466; 85025

== ENCOUNTER 2021-07-27 13:41 | Outpatient (CLI) | payer MEDICARE ==
[2021-07-27 17:57] LABS: BASOPHILS # (AUTO) 0.1 10^3/uL (0.0-0.1); BASOPHILS % (AUTO) 0.9 %; EOSINOPHILS # (AUTO) 0.2 10^3/uL (0.0-0.7); HGB - HEMOGLOBIN 9.2 g/dL (12.0-16.0); LYMPHOCYTES # (AUTO) 1.5 10^3/uL (1.5-3.5); LYMPHOCYTES % (AUTO) 28.2 %; MEAN CORPUSCULAR HEMOGLOBIN 28.1 pg (27.0-31.0); MEAN CORPUSCULAR HGB CONC 30.7 g/dL (32.0-36.0); MEAN CORPUSCULAR VOLUME 91.7 fL (81.0-99.0); MEAN PLATELET VOLUME 12.4 fL (7.9-10.8); MONOCYTES # (AUTO) 0.6 10^3/uL (0.0-1.0); MONOCYTES % (AUTO) 10.6 %; NEUTROPHILS # (AUTO) 3.1 10^3/uL (1.5-6.6); NEUTROPHILS % (AUTO) 56.1 %; PLT - PLATELET COUNT 189 10^3/uL (130-450); RED BLOOD COUNT 3.27 10^6/uL (4.20-5.40); RED CELL DISTRIBUTION WIDTH 14.9 % (12.0-15.0); WHITE BLOOD COUNT 5.5 x10^3/uL (4.8-10.8)
[2021-07-27 18:03] LABS: BILIRUBIN,URINE NEGATIVE (NEGATIVE); GLUCOSE, URINE (UA) NEGATIVE (NEGATIVE); KETONES,URINE (UA) NEGATIVE (NEGATIVE); LEUKOCYTE ESTERASE, URINE LARGE (NEGATIVE); NITRITE,URINE POSITIVE (NEGATIVE); OCCULT BLOOD,URINE SMALL (NEGATIVE); PROTEIN,URINE 30 mg/dL (NEGATIVE); UROBILINOGEN,URINE 0.2 (NORMAL) E.U./dL (NORMAL)
[2021-07-27 18:05] LABS: CLARITY,URINE CLOUDY (CLEAR)
[2021-07-27 18:10] LABS: % IRON SATURATION 6 % (20-50); BUN - BLOOD UREA NITROGEN 16 mg/dL (6-20); CALCIUM 8.8 mg/dL (8.5-10.3); CARBON DIOXIDE - CO2 35 mmol/L (21-32); CHLORIDE 100 mmol/L (101-111); CHOL/HDL RATIO 2.4 (<4.4); CHOLESTEROL 93 mg/dL; CREATININE 0.9 mg/dL (0.4-1.0); GFR - MDRD 60 (>89); GLUCOSE 168 mg/dL (70-100); HDL CHOLESTEROL 38 mg/dL; IRON 25 ug/dL (28-170); LDL CHOLESTEROL,CALCULATED 38 mg/dL; POTASSIUM 3.9 mmol/L (3.5-5.0); SODIUM 141 mmol/L (135-145); TOTAL IRON BINDING CAPACITY 407 ug/dL (250-450); TRANSFERRIN 291 mg/dL (192-382); TRIGLYCERIDES 83 mg/dL; VLDL CHOLESTEROL 17 mg/dL
[2021-07-27 18:20] LABS: WBC,URINE >25 /HPF (0-5)
[2021-07-27 18:21] LABS: BACTERIA,URINE Moderate /HPF (None Seen); SQUAMOUS EPITHELIAL CELL,UR FEW Squamous (<= Few)
[2021-07-27 18:21] LABS: THYROID STIMULATING HORMONE 1.72 uIU/mL (0.34-5.60)
[2021-07-27 18:27] LABS: FERRITIN 10.1 ng/mL (11.0-306.8)
[2021-07-27 21:01] LABS: ESTIMATED AVERAGE GLUCOSE 103 mg/dL (70-100); HEMOGLOBIN A1c% 5.2 % (4.27-6.07)
== END 2021-07-27 13:42 | disposition home or self-care (01) ==
LOC: LAB.N 13:41
PROVIDERS: ATTEND Internal Medicine
DX: E11.22 Type 2 diabetes mellitus with diabetic chronic kidney disease (principal); E78.5 Hyperlipidemia, unspecified; R39.15 Urgency of urination; D50.9 Iron deficiency anemia, unspecified; F31.60 Bipolar disorder, current episode mixed, unspecified
CPT/HCPCS: 36415; 80048; 80061; 81001; 82728; 83036; 83540; 83721; 84443; 84466; 85025; 87086; 87181

== ENCOUNTER 2022-10-19 14:11 | Outpatient (CLI) | payer MEDICARE ==
[2022-10-19 17:47] LABS: % IRON SATURATION 12 % (20-50); ALBUMIN 3.8 g/dL (3.2-5.5); ALBUMIN/GLOBULIN RATIO 1.4 (1.0-2.2); ALKALINE PHOSPHATASE 70 IU/L (42-121); ALT ALANINE AMINOTRANSFERASE 13 IU/L (10-60); AST ASPARTATE AMINOTRANSFERASE 18 IU/L (10-42); BILIRUBIN,TOTAL 0.9 mg/dL (0.2-1.0); BUN - BLOOD UREA NITROGEN 16 mg/dL (6-20); CALCIUM 9.5 mg/dL (8.5-10.3); CARBON DIOXIDE - CO2 32 mmol/L (21-32); CHLORIDE 104 mmol/L (101-111); CHOL/HDL RATIO 3.1 (<4.4); CHOLESTEROL 96 mg/dL; CREATININE 1.1 mg/dL (0.6-1.3); GFR - MDRD 48 (>89); GLUCOSE 127 mg/dL (74-104); HDL CHOLESTEROL 31 mg/dL; IRON 48 ug/dL (50-212); LDL CHOLESTEROL,CALCULATED 41 mg/dL; LDL/HDL RATIO 1.3 (<4.4); POTASSIUM 4.2 mmol/L (3.5-4.5); SODIUM 142 mmol/L (135-145); TOTAL IRON BINDING CAPACITY 396 ug/dL (250-450); TOTAL PROTEIN 6.5 g/dL (6.4-8.9); TRANSFERRIN 283 mg/dL (203-362); TRIGLYCERIDES 122 mg/dL (48-352); VLDL CHOLESTEROL 24 mg/dL
[2022-10-19 17:49] LABS: BASOPHILS % (AUTO) 0.7 %; EOSINOPHILS # (AUTO) 0.3 10^3/uL (0.0-0.7); EOSINOPHILS % (AUTO) 6.2 %; HCT - HEMATOCRIT 35.8 % (37.0-47.0); HGB - HEMOGLOBIN 11.2 g/dL (12.0-16.0); LYMPHOCYTES # (AUTO) 1.6 10^3/uL (1.5-3.5); LYMPHOCYTES % (AUTO) 29.3 %; MEAN CORPUSCULAR HEMOGLOBIN 28.9 pg (27.0-31.0); MEAN CORPUSCULAR HGB CONC 31.3 g/dL (32.0-36.0); MEAN CORPUSCULAR VOLUME 92.5 fL (81.0-99.0); MEAN PLATELET VOLUME 12.6 fL (7.9-10.8); MONOCYTES # (AUTO) 0.6 10^3/uL (0.0-1.0); MONOCYTES % (AUTO) 10.6 %; NEUTROPHILS # (AUTO) 2.8 10^3/uL (1.5-6.6); PLT - PLATELET COUNT 199 10^3/uL (130-450); RED BLOOD COUNT 3.87 10^6/uL (4.20-5.40); RED CELL DISTRIBUTION WIDTH 14.1 % (12.0-15.0); WHITE BLOOD COUNT 5.4 x10^3/uL (4.8-10.8)
[2022-10-19 18:05] LABS: THYROID STIMULATING HORMONE 1.32 uIU/mL (0.34-5.60)
[2022-10-19 18:11] LABS: FERRITIN 15.7 ng/mL (11.0-306.8)
[2022-10-19 20:47] LABS: ESTIMATED AVERAGE GLUCOSE 91 mg/dL (70-100); HEMOGLOBIN A1c% 4.8 % (4.27-6.07)
== END 2022-10-19 14:12 | disposition home or self-care (01) ==
LOC: LAB.N 14:11
PROVIDERS: ATTEND Internal Medicine
DX: I25.10 Atherosclerotic heart disease of native coronary artery without angina pectoris (principal); E78.5 Hyperlipidemia, unspecified; D50.9 Iron deficiency anemia, unspecified; F31.60 Bipolar disorder, current episode mixed, unspecified; E11.42 Type 2 diabetes mellitus with diabetic polyneuropathy
CPT/HCPCS: 36415; 80053; 80061; 82043; 82570; 82728; 83036; 83540; 83721; 84443; 84466; 85025

== ENCOUNTER 2022-10-20 08:00 | Outpatient (CLI) | payer MEDICARE ==
[2022-10-20 18:16] LABS: CREATININE,URINE 71.6 mg/dL
[2022-10-20 18:24] LABS: MICROALBUMIN,URINE < 0.7 mg/dL
== END 2022-10-20 23:59 | disposition home or self-care (01) ==
LOC: LAB.N 08:00
PROVIDERS: ATTEND Internal Medicine
DX: E11.42 Type 2 diabetes mellitus with diabetic polyneuropathy (principal)
CPT/HCPCS: 82043; 82570

== ENCOUNTER 2022-12-25 13:26 | Outpatient (CLI) | payer MEDICARE ==
--- NOTE | 2022-12-25 15:23 | CT Report ---
PROCEDURE: CHEST WO INDICATIONS: DYSPNEA TECHNIQUE: Noncontrast 1mm axial images were acquired from the pulmonary apices to the posterior costophrenic an gles. Axial 5 mm soft tissue kernel reconstructions were performed as well as 8 mm axial MIP and cor onal and sagittal 5 mm reformations. For radiation dose reduction, the following was used: automate d exposure control, adjustment of mA and/or kV according to patient size. COMPARISON: Chest film dated 03/28/2021 FINDINGS: Image quality: Excellent. Lungs and pleura: Mild emphysematous change. No consolidation. No pleural effusions. No pneumothorax . Pulmonary nodules are as follows (all described on series 3): 1. Left lower lobe, image 213, 5 mm. 2. Pleural-based left lower lobe, 4 mm, image 233. 3. Fissural nodule, right lung, 4 mm, possibly a benign fissural lymph node, image 131. 4. 5 mm right lower lobe noncalcified pulmonary nodule, image 133. Mediastinum: Heart size is normal. No pericardial effusion. Severe coronary artery calcifications, co ronary artery stent. No large vessel abnormality. No mediastinal adenopathy by size criteria. Chest wall and lower neck: Thyroid is unremarkable. No axillary or supraclavicular adenopathy by size . Bones: No aggressive osseous abnormality. Upper Abdomen: Unremarkable. IMPRESSION: 1. Mild emphysematous change. 2. Multiple small noncalcified pulmonary nodules, the largest of which measures 5 mm. 3. Coronary artery disease. Comment: As per the Fleischner Society criteria,If the patient is at low risk for lung cancer follow up CT at 12 months, if unchanged, no further follow up needed. If the patient has risk factors for adrian ng cancer, follow up chest CT at 6- 12 months, then at 18-24 months if no change. Reviewed by: Fareed Olson MD on 12/25/2022 3:21 PM PST Approved by: Fareed Olson MD on 12/25/2022 3:21 PM PST Station ID: [id number]
== END 2022-12-25 13:27 | disposition home or self-care (01) ==
LOC: DI 13:26
PROVIDERS: ATTEND Internal Medicine
DX: J43.9 Emphysema, unspecified (principal); R91.8 Other nonspecific abnormal finding of lung field; I25.10 Atherosclerotic heart disease of native coronary artery without angina pectoris